=== PATIENT | female | born 1950 | race Asian ===

== ENCOUNTER 2016-11-07 09:42 | Outpatient (CLI) | payer MEDICARE | END 2016-11-07 09:43 | disposition home or self-care (01) | DX: M87.044 Idiopathic aseptic necrosis of right finger(s) (principal) ==

== ENCOUNTER 2017-03-27 09:11 | Outpatient (CLI) | payer MEDICARE, OTHER ==
[2017-03-27] MEDS ORDERED: BARIUM SULFATE 148 GM POWDER PO ONE (09:55)
[2017-03-27] MEDS ORDERED: BARIUM SULFATE 135 ML BOTTLE PO ONE (09:55)
--- NOTE | 2017-03-27 12:11 | XRAY Report ---
ESOPHAGRAM: 03/27/2017 CLINICAL INDICATION: Dysphagia. FINDINGS: Esophagram was performed in the upright and prone positions. The esophagus is normal in c aliber. Tertiary contractions are seen. No esophageal ulceration, mass lesion, or stricturing is pr esent. There is a small sliding hiatal hernia, which produced gastroesophageal reflux during the cou rse of the study. The hypopharynx appears unremarkable. A 13-mm barium pill passed freely through t he esophagus and into the stomach. IMPRESSION: SMALL SLIDING HIATAL HERNIA, PRODUCING REFLUX. PRESBYESOPHAGUS. FLUOROSCOPY TIME: 2 minutes, 21 seconds; 18 spot images obtained. JOB #: [id number] EXT JOB #:[id number]
== END 2017-03-27 09:12 | disposition home or self-care (01) ==
LOC: DI 09:11
PROVIDERS: ATTEND Surgery
DX: K44.9 Diaphragmatic hernia without obstruction or gangrene (principal); K21.9 Gastro-esophageal reflux disease without esophagitis; K22.8 Other specified diseases of esophagus
CPT/HCPCS: 74220; A9270

== ENCOUNTER 2017-05-02 11:38 | Day surgery (SDC) | payer MEDICARE ==
--- NOTE | 2017-05-02 12:18 | HISTORY & PHYSICAL EXAMINATION ---
HPI - History of Present Illness HPI Comment/Other: Barium swallow performed which demonstrates tertiary contractions but no mass lesions. No new complaints Current Meds: CLOBETASOL PROPIONATE 0.05 % OINT (CLOBETASOL PROPIONATE) Apply sparingly to affected area once daily for up to 2 weeks SPIRIVA RESPIMAT 2.5 MCG/ACT INH AERS (TIOTROPIUM BROMIDE MONOHYDRATE) Inhale two puffs daily PROAIR RESPICLICK 108 (90 BASE) MCG/ACT INH AEPB (ALBUTEROL SULFATE) Inhale two actuations every four to six hours as needed for wheezing / cough or shortness of breath ASPIRIN EC 81 MG TBEC (ASPIRIN) Take one tablet by mouth daily Allergies: * ALCOHOL (Critical) * SEASON ALLERGIES (Critical) Past Medical History: Reviewed history from 01/10/2017 and no changes required: Hearing loss (L>R) - prior ENT consult PUD ~2002 Echo 2016: moderate pulmonary and tricuspid regurg, severe pulm HTN w/ borderline RVH CT chest Jun, 2016: 9x7mm nodule right lower lobe, emphysemia and biapical fibrosis, pulmonary HTN Flovent : ineffective Spiriva 2015 Past Surgical History: Reviewed history from 10/02/2016 and no changes required: Appy Right heart cath Aug, 2016: normal left and right sided filling pressures , normal cardiac output, high-normal pulmonary artery pressure - Dr. 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 [employer] Son was stationed in [employer] (pt moved here to help son, daughter in law w / substance abuse - they have since moved to [place] and have lost contact) Other son in [place] Smoker ~1/2 ppd, started at 22 No EtOH Lives off social security and full-time pay w/ [facility] Will likely move to [place] to be near 2nd son but cannot afford to move - fears unemployment/plans to work until age 69 Risk Factors: Smoked Tobacco Use: Current every day smoker Cigarettes: Yes -- 1/2 pack(s) per day,Alcohol use: no Exercise: no Problems were reviewed with the patient during this visit. Medications were reviewed with the patient during this visit. Allergies were reviewed with the patient during this visit. Allergies: * ALCOHOL (Critical) * SEASON ALLERGIES (Critical) Physical Exam General: well developed, well nourished, in no acute distress Lungs: diminished breath sounds bilaterally Heart: regular rate and rhythm, S1, S2 without murmurs, rubs, gallops, or clicks Abdomen: bowel sounds positive; abdomen soft and non-tender without masses, organomegaly, or hernias noted Pulses: pulses normal in all 4 extremities Extremities: no clubbing, cyanosis, edema, or deformity noted with normal full range of motion of all joints Cervical Nodes: no significant adenopathy Psych: alert and cooperative; normal mood and affect; normal attention span and concentration Impression & Recommendations: Will proceed with EGD and colonoscopy with MAC PMH/PSH - Past Medical History MRSA Hx?: No Meds/Allgy - Home Medications Home Medications: Ambulatory Orders Medication Instructions Recorded Confirmed Budesonide/Formoterol Fumarate 10.2 gm IH BID 05/02/17 05/02/17 [Symbicort 160-4.5 Mcg Inhaler] Tiotropium Dexter [Spiriva] 18 mcg IH BID 05/02/17 05/02/17 - Allergies Allergies/Adverse Reactions: Allergies Allergy/AdvReac Type Severity Reaction Status Date / Time No Known Drug Allergies Allergy Verified 05/02/17 12:11 Exam - Vital Signs Vital Signs: Vital Signs x48h Temp Pulse Resp BP Pulse Ox 05/02/17 12:04 36.6 C 84 15 105/60 99
[2017-05-02] MEDS ORDERED: LACTATED RINGERS 1,000 ML IV ONE (12:20)
[2017-05-02] MEDS ORDERED: SUCCINYLCHOLINE 200 MG/10 ML VIAL IVP ONE (13:38)
[2017-05-02] MEDS ORDERED: LIDOCAINE-MPF 2% 5 ML VIAL IM ONE (13:38)
[2017-05-02] MEDS ORDERED: VASOPRESSIN 20 UNIT/ML VIAL IVP ONE (13:38)
[2017-05-02] MEDS ORDERED: ONDANSETRON 4 MG/2 ML VIAL IVP ONE (13:38)
[2017-05-02] MEDS ORDERED: DEXAMETHASONE 4 MG/ML VIAL IVP ONE (13:38)
[2017-05-02] MEDS ORDERED: PROPOFOL 200 MG/20 ML VIAL IVP ONE (13:38)
[2017-05-02 16:07] VITALS: BP 128/76
== END 2017-05-02 11:39 | disposition home or self-care (01) ==
LOC: SDS 11:38
PROVIDERS: ATTEND Surgery
PROC: 0DB78ZX Excision of Stomach, Pylorus, Via Natural or Artificial Opening Endoscopic, Diagnostic (ICD-10-PCS; principal; 2017-05-02 12:45)
PROC: 0DBH8ZX Excision of Cecum, Via Natural or Artificial Opening Endoscopic, Diagnostic (ICD-10-PCS; 2017-05-02 12:45)
DX: Z12.11 Encounter for screening for malignant neoplasm of colon (principal); R13.10 Dysphagia, unspecified; K29.50 Unspecified chronic gastritis without bleeding; D12.0 Benign neoplasm of cecum; K64.8 Other hemorrhoids; F17.210 Nicotine dependence, cigarettes, uncomplicated; K44.9 Diaphragmatic hernia without obstruction or gangrene; J84.10 Pulmonary fibrosis, unspecified; I10 Essential (primary) hypertension
CPT/HCPCS: 43239; 45380; 88305; J7120

== ENCOUNTER 2017-06-14 08:59 | Outpatient (CLI) | payer MEDICARE ==
[2017-06-14 13:09] LABS: CHOL/HDL RATIO 2.6 (<4.4); CHOLESTEROL 164 mg/dL; HDL CHOLESTEROL 63 mg/dL; LDL/HDL RATIO 1.4 (<4.4); TRIGLYCERIDES 71 mg/dL; VLDL CHOLESTEROL 14 mg/dL
== END 2017-06-14 09:00 | disposition home or self-care (01) ==
LOC: LAB.WCP 08:59
PROVIDERS: ATTEND Physician Assistant Medical
DX: R74.8 Abnormal levels of other serum enzymes (principal); Z71.9 Counseling, unspecified
CPT/HCPCS: 36415; 80061; 86803

== ENCOUNTER 2017-07-08 14:42 | Outpatient (CLI) | payer MEDICARE ==
--- NOTE | 2017-07-08 16:47 | DEXA Report ---
DEXA SCAN: 07/08/2017 CLINICAL INDICATION: Postmenopausal. TECHNIQUE: Dual energy x-ray absorptiometry (DXA) was performed on a lmbang system. Regions measured are the AP spine, femoral neck, and, if needed, forearm. COMPARISON: None. In accordance with the International Society for Clinical Densitometry (ISCD) guidelines, data from previous exams may be reanalyzed using current recommendations and techniques. This is done to allow a more accurate basis for comparison with the current study. FINDINGS: The data for the lumbar spine is as follows: REGION BMD (g/cm/cm) T-SCORE Z-SCORE L1 0.714 -3.5 -0.9 L2 0.753 -3.7 -1.2 L3 0.786 -3.5 -0.9 L4 0.840 -3.0 -0.4 TOTAL 0.778 -3.3 -0.8 NOTE: All evaluable vertebrae are used for classification. The data for the hip is as follows: REGION BMD (g/cm/cm) T-SCORE Z-SCORE Neck 0.577 -3.3 -1.1 TOTAL 0.647 -2.9 -0.8 NOTE: The femoral neck or total proximal femur, whichever is lowest, is used for classification. IMPRESSION: THE WHO CLASSIFICATION BASED ON THE INTERNATIONAL REFERENCE STANDARD IS OSTEOPOROSIS. THE FRACTURE RISK IS HIGH. RECOMMENDATION: Patients with diagnosis of osteoporosis or osteopenia should have regular bone mineral density assessment. For those eligible for Medicare, routine testing is allowed once every 2 years. Testing frequency can be increased for patients who have rapidly progressing disease or for those who are receiving medical therapy to restore bone mass. COMMENT: World Health Organization (WHO) definitions for osteoporosis and osteopenia: NORMAL BMD: T-score at -1.0 or higher, fracture risk is low. OSTEOPENIA BMD: T-score between -1.0 and -2.5, fracture risk is increased. OSTEOPOROSIS BMD: T-score at -2.5 or lower, fracture risk high. National Osteoporosis Foundation recommends: 1. Obtain adequate dietary calcium (at least 1200 mg per day) and vitamin D (400 -800 international units per day). 2. Participate, as appropriate, in regular weightbearing and muscle- strengthening exercise. 3. Avoid tobacco use and reduce alcohol and caffeine intake. 4. For more detailed information see the website at www.NOF.org. MTDD
== END 2017-07-08 14:43 | disposition home or self-care (01) ==
LOC: DI 14:42
PROVIDERS: ATTEND Physician Assistant Medical
DX: M81.0 Age-related osteoporosis without current pathological fracture (principal)
CPT/HCPCS: 77080

== ENCOUNTER 2017-07-08 14:44 | Outpatient (CLI) | payer MEDICARE ==
--- NOTE | 2017-07-09 19:23 | Mammography Report ---
DIGITAL SCREENING MAMMOGRAM: 07/08/2017 CLINICAL INDICATION: A 67-year-old for new baseline. TECHNIQUE: Routine CC and MLO projections as well as bilateral laterally exaggerated craniocaudal vi ews were obtained of the breasts. The breasts demonstrate heterogeneously dense fibroglandular parenchyma bilaterally. Coarse and punc sanchez, typically benign calcifications are present. No suspicious masses, clustered microcalcificatio ns, or regions of architectural distortion are identified. IMPRESSION: BENIGN FINDINGS. RECOMMENDATION: ROUTINE ANNUAL SCREENING UNLESS OTHERWISE CLINICALLY INDICATED. BIRADS CATEGORY: 2, BENIGN FINDINGS. STANDARD QUALIFYING STATEMENTS 1. This examination was reviewed with the aid of Computed-Aided Detection (CAD). 2. A negative or benign imaging report should not delay biopsy if clinically suspicious findings are present. Consider surgical consultation if warranted. More than 5% of cancers are not identified b y imaging. 3. Dense breasts may obscure an underlying neoplasm. JOB #: [id number] EXT JOB #:[id number]
== END 2017-07-08 14:45 | disposition home or self-care (01) ==
LOC: DI 14:44
PROVIDERS: ATTEND Physician Assistant Medical
DX: Z12.31 Encounter for screening mammogram for malignant neoplasm of breast (principal)
CPT/HCPCS: 77067

== ENCOUNTER 2018-07-25 08:27 | Outpatient (CLI) | payer MEDICARE ==
[2018-07-25 12:29] LABS: EOSINOPHILS # (AUTO) 0.1 10^3/uL (0.0-0.7); EOSINOPHILS % (AUTO) 1.2 %; HGB - HEMOGLOBIN 14.6 g/dL (12.0-16.0); LYMPHOCYTES # (AUTO) 1.6 10^3/uL (1.5-3.5); LYMPHOCYTES % (AUTO) 34.4 %; MEAN CORPUSCULAR HEMOGLOBIN 33.9 pg (27.0-31.0); MEAN CORPUSCULAR HGB CONC 34.5 g/dL (32.0-36.0); MEAN CORPUSCULAR VOLUME 98.3 fL (81.0-99.0); MEAN PLATELET VOLUME 7.8 fL (7.9-10.8); MONOCYTES # (AUTO) 0.4 10^3/uL (0.0-1.0); MONOCYTES % (AUTO) 8.1 %; NEUTROPHILS # (AUTO) 2.5 10^3/uL (1.5-6.6); NEUTROPHILS % (AUTO) 55.3 %; PLT - PLATELET COUNT 126 10^3/uL (130-450); RED BLOOD COUNT 4.31 10^6/uL (4.20-5.40); RED CELL DISTRIBUTION WIDTH 15.5 % (12.0-15.0); WHITE BLOOD COUNT 4.5 x10^3/uL (4.8-10.8)
[2018-07-25 13:10] LABS: ALBUMIN 4.1 g/dL (3.2-5.5); ALBUMIN/GLOBULIN RATIO 1.4 (1.0-2.2); ALKALINE PHOSPHATASE 59 IU/L (42-121); ALT ALANINE AMINOTRANSFERASE 25 IU/L (10-60); AST ASPARTATE AMINOTRANSFERASE 32 IU/L (10-42); BILIRUBIN,TOTAL 1.2 mg/dL (0.2-1.0); BUN - BLOOD UREA NITROGEN 20 mg/dL (6-20); CALCIUM 7.8 mg/dL (8.5-10.3); CARBON DIOXIDE - CO2 25 mmol/L (21-32); CHLORIDE 99 mmol/L (101-111); CHOL/HDL RATIO 2.5 (<4.4); CHOLESTEROL 120 mg/dL; CREATININE 0.5 mg/dL (0.4-1.0); GFR - MDRD 122 (>89); GLUCOSE 91 mg/dL (70-100); HDL CHOLESTEROL 48 mg/dL; LDL CHOLESTEROL,CALCULATED 57 mg/dL; LDL/HDL RATIO 1.2 (<4.4); SODIUM 136 mmol/L (135-145); VLDL CHOLESTEROL 15 mg/dL
== END 2018-07-25 08:28 | disposition home or self-care (01) ==
LOC: LAB.WCP 08:27
PROVIDERS: ATTEND Family Medicine
DX: R74.8 Abnormal levels of other serum enzymes (principal); Z13.220 Encounter for screening for lipoid disorders; F41.9 Anxiety disorder, unspecified; R63.6 Underweight; R03.0 Elevated blood-pressure reading, without diagnosis of hypertension; F17.200 Nicotine dependence, unspecified, uncomplicated
CPT/HCPCS: 36415; 80053; 80061; 83721; 84443; 85025

== ENCOUNTER 2018-08-01 11:12 | Outpatient (CLI) | payer MEDICARE ==
[2018-08-01 19:25] LABS: BASOPHILS % (AUTO) 0.9 %; EOSINOPHILS # (AUTO) 0.1 10^3/uL (0.0-0.7); EOSINOPHILS % (AUTO) 1.5 %; HGB - HEMOGLOBIN 15.2 g/dL (12.0-16.0); LYMPHOCYTES # (AUTO) 1.4 10^3/uL (1.5-3.5); LYMPHOCYTES % (AUTO) 24.6 %; MEAN CORPUSCULAR HEMOGLOBIN 33.1 pg (27.0-31.0); MEAN CORPUSCULAR HGB CONC 32.9 g/dL (32.0-36.0); MEAN CORPUSCULAR VOLUME 100.7 fL (81.0-99.0); MEAN PLATELET VOLUME 8.4 fL (7.9-10.8); MONOCYTES # (AUTO) 0.4 10^3/uL (0.0-1.0); MONOCYTES % (AUTO) 7.8 %; NEUTROPHILS # (AUTO) 3.7 10^3/uL (1.5-6.6); NEUTROPHILS % (AUTO) 65.2 %; PLT - PLATELET COUNT 135 10^3/uL (130-450); RED BLOOD COUNT 4.59 10^6/uL (4.20-5.40); RED CELL DISTRIBUTION WIDTH 16.4 % (12.0-15.0); WHITE BLOOD COUNT 5.6 x10^3/uL (4.8-10.8)
[2018-08-01 19:34] LABS: ALBUMIN 4.3 g/dL (3.2-5.5); ALBUMIN/GLOBULIN RATIO 1.5 (1.0-2.2); BILIRUBIN,TOTAL 0.9 mg/dL (0.2-1.0); CALCIUM 8.7 mg/dL (8.5-10.3); CREATININE 0.5 mg/dL (0.4-1.0); TOTAL PROTEIN 7.2 g/dL (6.7-8.2)
== END 2018-08-01 11:13 | disposition home or self-care (01) ==
LOC: LAB.WCP 11:12
PROVIDERS: ATTEND Family Medicine
DX: R10.13 Epigastric pain (principal)
CPT/HCPCS: 36415; 80053; 82150; 83690; 85025

== ENCOUNTER 2018-08-05 17:48 | Outpatient (CLI) | payer MEDICARE ==
--- NOTE | 2018-08-05 20:04 | Ultrasound Report ---
Reason: ABDOMINAL PAIN,EPIGASTRIC Procedure Date: 08/05/2018 Accession Number: [id number] / [id number] Procedure: US - Abdomen Limited CPT Code: FULL RESULT: EXAM: ABDOMEN ULTRASOUND LIMITED, RUQ EXAM DATE: 08/05/2018 07:19 PM. CLINICAL HISTORY: ABDOMINAL Pain, epigastric. COMPARISON: None available. TECHNIQUE: Real-time scanning was performed with static images obtained. FINDINGS: Liver: Normal in size and echotexture. 12.1 cm. Main portal vein flow: Hepatopetal. Gallbladder: The gallbladder is partially contracted. No stones visualized. No definite pericholecystic fluid. Biliary System: CBD measures 3 mm. No intrahepatic or extrahepatic ductal dilatation. Other: Unremarkable appearance of the right kidney. The visualized pancreas is unremarkable. IMPRESSION: No evidence of cholelithiasis or acute cholecystitis. The gallbladder is partially contracted. RADIA
== END 2018-08-05 17:49 | disposition home or self-care (01) ==
LOC: DI 17:48
PROVIDERS: ATTEND Family Medicine
DX: R10.13 Epigastric pain (principal)
CPT/HCPCS: 76705

== ENCOUNTER 2018-08-12 22:41 | Outpatient (CLI) | payer MEDICARE ==
[2018-08-12 19:10] LABS: THYROID STIMULATING HORMONE < 0.08 uIU/mL (0.34-5.60)
[2018-08-12 19:14] LABS: FREE T4 (FREE THYROXINE) 1.25 ng/dL (0.58-1.64)
== END 2018-08-12 22:42 | disposition home or self-care (01) ==
LOC: LAB.WCP 22:41
PROVIDERS: ATTEND Family Medicine
DX: R94.6 Abnormal results of thyroid function studies (principal)
CPT/HCPCS: 36415; 84439; 84443; 84481

== ENCOUNTER 2018-08-16 06:40 | Outpatient (CLI) | payer MEDICARE ==
[2018-08-16] MEDS ORDERED: IOPAMIDOL-300 50 ML VIAL ONE (06:52)
[2018-08-16] MEDS ORDERED: IOPAMIDOL-300 100 ML VIAL ONE (06:53)
[2018-08-16] MEDS ORDERED: IOPAMIDOL-300 50 ML VIAL PO ONE (08:40)
[2018-08-16] MEDS ORDERED: IOPAMIDOL-300 100 ML VIAL IVP ONE (08:40)
--- NOTE | 2018-08-17 09:13 | CT Report ---
Reason: ABDOMINAL PAIN,EPIGASTRIC, LOW BODY WEIGHT Procedure Date: 08/16/2018 Accession Number: [id number] / [id number] Procedure: CT - Abdomen/Pelvis W/WO CPT Code: FULL RESULT: EXAM: CT ABDOMEN WITHOUT AND WITH, CT PELVIS WITH CONTRAST EXAM DATE: 08/16/2018 08:15 AM. CLINICAL HISTORY: ABDOMINAL PAIN,EPIGASTRIC, LOW BODY WEIGHT. COMPARISONS: None. TECHNIQUE: Routine helical CT imaging was performed through the abdomen before administration of IV contrast and through the abdomen and pelvis with IV contrast: ISOVUE 300 80mL. Enteric contrast: Yes Reconstructions: Coronal and sagittal. In accordance with CT protocol optimization, one or more of the following dose reduction techniques were utilized for this exam: automated exposure control, adjustment of mA and/or KV based on patient size, or use of iterative reconstructive technique. FINDINGS: Lung Bases: Severe centrilobular emphysema at the lung bases. Cardiomegaly with asymmetric right heart enlargement. Liver: Normal. No masses. Gallbladder/Bile Ducts: Extrahepatic biliary ductal dilatation with the common bile duct measuring 10 mm, series 10, coronal image 13. No obstructing etiology seen. Spleen: Normal. Pancreas: Normal. Adrenal Glands: Normal. Kidneys: Normal. No masses or hydronephrosis. Peritoneal Cavity/Bowel: Normal. No free fluid, free air or adenopathy. No masses or acute inflammatory process. Pelvic Organs: Normal. The bladder and visualized pelvic organs are within normal limits. Vasculature: Enlarged left ovarian vein with prominent bilateral parametrial veins. Bones: Decreased bone mineralization. Other: None. IMPRESSION: 1. No acute findings in the abdomen or pelvis 2. Severe emphysema 3. Cardiomegaly with right heart enlargement 4. Mild extrahepatic biliary ductal dilatation without etiology. Consider correlation with liver function tests and if obstructive pattern, MRI pancreas/MRCP 5. Enlarged left ovarian vein and bilateral parametrial veins is often normal however has been described with pelvic congestion syndrome in a younger demographic 6. Decreased bone mineralization RADIA
== END 2018-08-16 06:41 | disposition home or self-care (01) ==
LOC: DI 06:40
PROVIDERS: ATTEND Family Medicine
DX: R10.13 Epigastric pain (principal); R63.6 Underweight; J43.9 Emphysema, unspecified; I51.7 Cardiomegaly; R93.2 Abnormal findings on diagnostic imaging of liver and biliary tract; R93.89 Abnormal findings on diagnostic imaging of other specified body structures
CPT/HCPCS: 74178; Q9967

== ENCOUNTER 2018-08-19 11:12 | Outpatient (CLI) | payer MEDICARE ==
[2018-08-19] MEDS ORDERED: SINCALIDE 5 MCG VIAL ONE (12:55)
[2018-08-19] MEDS ORDERED: SINCALIDE 0.9 MCG in SODIUM CHLORIDE 0.9% 50 ML IV ONE (14:28)
--- NOTE | 2018-08-19 14:59 | Nuclear Medicine Report ---
Reason: ABDOMINAL PAIN, EPIGASTRIC, LOW BODY WEIGHT Procedure Date: 08/19/2018 Accession Number: [id number] / [id number] Procedure: NM - Hepatobiliary HIDA w/ Rx CPT Code: FULL RESULT: EXAM: HEPATOBILIARY SCAN WITH CCK/KINEVAC ADMINISTRATION EXAM DATE: 08/19/2018 02:31 PM. CLINICAL HISTORY: ABDOMINAL PAIN, EPIGASTRIC, LOW BODY WEIGHT. COMPARISON: None. TECHNIQUE: Following the intravenous administration of 5.1 mCi of Tc99m Mebrofenin, a hepatobiliary scan was done centered on the liver and gallbladder in multiple sequential images and projections. Following the intravenous administration of 0.7 mcg of CCK/ Kinevac over the course of approximately 60 minutes, dynamic imaging was done and the gallbladder ejection fraction was calculated. FINDINGS: Normal extraction of tracer from the blood pool indicating normal hepatocellular function. The liver size and shape is grossly within normal limits. Appearance of tracer in the biliary tree as early as 0-5 minutes, within normal limits. Gallbladder activity is not clearly visualized although may be obscured by conspicuous activity within the common bile duct and/or duodenum. Appearance of tracer in the small bowel as early as 5-10 minutes, within normal limits. With CCK administration, the calculated ejection fraction is 87%, however it is unclear whether the selected CHUYITA represents the gallbladder. No evidence of enteric reflux into the stomach. No significant collection of tracer remaining in the common bile duct by the end of the study. IMPRESSION: 1. Gallbladder activity is not clearly visualized although may be obscured by activity within the common bile duct and/or duodenum. 2. Patent common bile duct. RADIA
== END 2018-08-19 11:13 | disposition home or self-care (01) ==
LOC: DI 11:12
PROVIDERS: ATTEND Family Medicine
DX: R10.13 Epigastric pain (principal)
CPT/HCPCS: 78227; J7040

== ENCOUNTER 2018-09-27 16:47 | Outpatient (CLI) | payer MEDICARE ==
--- NOTE | 2018-09-28 01:12 | Ultrasound Report ---
Reason: HYPERTHYROIDISM Procedure Date: 09/27/2018 Accession Number: [id number] / [id number] Procedure: US - Head or Neck Soft Tissue CPT Code: FULL RESULT: EXAM: THYROID ULTRASOUND EXAM DATE: 09/27/2018 05:11 PM. CLINICAL HISTORY: HYPERTHYROIDISM. COMPARISON: None. TECHNIQUE: Real time sonographic imaging of the thyroid was performed by the boilermaker assembly and erection. Multiple sales representative graphic art static images were saved for review. FINDINGS: THYROID GLAND: Right Lobe: 4.4 x 1.3 x 1.4 cm, volume 4.2 cc. Mildly hypervascular parenchyma. Heterogeneous parenchyma. No mass or nodule. Right Lobe Nodules: None. Left Lobe: 4 x 1.2 x 1.3 cm, volume 3.2 cc. Mildly hypervascular parenchyma. Heterogeneous parenchyma. No mass or nodule. Left Lobe Nodules: None. Isthmus: 0.2 cm AP. Isthmic Nodules: None. LYMPH NODES: No adenopathy demonstrated in the central or lateral compartment. OTHER: None. IMPRESSION: 1. Heterogeneous, mildly hypervascular thyroid gland parenchyma. 2. No thyroid nodule or mass. 3. No adenopathy. Management recommendations are based on 2015 [place] [employer] Management Guidelines for Adult Patients with Thyroid Nodules and Differentiated Thyroid Cancer. RADIA
== END 2018-09-27 16:48 | disposition home or self-care (01) ==
LOC: DI 16:47
PROVIDERS: ATTEND Family Medicine
DX: E05.90 Thyrotoxicosis, unspecified without thyrotoxic crisis or storm (principal)
CPT/HCPCS: 76536

== ENCOUNTER 2018-12-25 09:49 | Outpatient (CLI) | payer MEDICARE ==
--- NOTE | 2018-12-25 11:40 | XRAY Report ---
Reason: EDEMA,PULMONARY FIBROSIS,CARDIOMEGALY,SMOKER Procedure Date: 12/25/2018 Accession Number: [id number] / [id number] Procedure: WCP - Chest 2 View X-Ray CPT Code: 68042 FULL RESULT: EXAM: CHEST RADIOGRAPHY EXAM DATE: 12/25/2018 09:49 AM. CLINICAL HISTORY: Edema, pulmonary fibrosis, cardiomegaly,smoker. COMPARISON: CHEST 2 VIEW PA/LAT 06/12/2016 11:24 AM. TECHNIQUE: 2 views. FINDINGS: Lungs/Pleura: Pulmonary markings are coarse in keeping with interstitial lung disease. Diaphragms are flattened and lung volumes are high, suggestive of component of obstructive lung disease. A 7 mm well-rounded hyperdense nodule in the right infrahilar region and a 9 mm well-circumscribed hypodense nodule in the left suprahilar region identified. The right nodule finding possibly represents a vessel on end and is questionably present on the previous study though this is not definitely established. The right suprahilar finding appears new. No airspace consolidation is detected. There is no pleural effusion or pneumothorax. Mediastinum: Redemonstration of cardiomegaly with calcifications of the aortic arch. Other: None. IMPRESSION: Apparent interval development of perihilar nodules, recommend chest CT. RADIA
== END 2018-12-25 09:50 | disposition home or self-care (01) ==
LOC: DI.WCP 09:49
PROVIDERS: ATTEND Nurse Practitioner
DX: R60.9 Edema, unspecified (principal); J84.10 Pulmonary fibrosis, unspecified; I51.7 Cardiomegaly; F17.200 Nicotine dependence, unspecified, uncomplicated; R91.8 Other nonspecific abnormal finding of lung field; I49.9 Cardiac arrhythmia, unspecified; E05.90 Thyrotoxicosis, unspecified without thyrotoxic crisis or storm
CPT/HCPCS: 36415; 71046; 80053; 83880; 84443; 85025; 86021; 86038; 86200; 86430

== ENCOUNTER 2018-12-25 10:44 | Outpatient (CLI) | payer MEDICARE ==
[2018-12-25 18:54] LABS: BASOPHILS # (AUTO) 0.1 10^3/uL (0.0-0.1); BASOPHILS % (AUTO) 1.2 %; EOSINOPHILS # (AUTO) 0.1 10^3/uL (0.0-0.7); HGB - HEMOGLOBIN 14.3 g/dL (12.0-16.0); LYMPHOCYTES # (AUTO) 1.6 10^3/uL (1.5-3.5); LYMPHOCYTES % (AUTO) 30.9 %; MEAN CORPUSCULAR HEMOGLOBIN 33.8 pg (27.0-31.0); MEAN CORPUSCULAR HGB CONC 32.2 g/dL (32.0-36.0); MEAN CORPUSCULAR VOLUME 104.9 fL (81.0-99.0); MEAN PLATELET VOLUME 9.3 fL (7.9-10.8); MONOCYTES # (AUTO) 0.3 10^3/uL (0.0-1.0); MONOCYTES % (AUTO) 5.8 %; NEUTROPHILS % (AUTO) 60.1 %; PLT - PLATELET COUNT 132 10^3/uL (130-450); RED BLOOD COUNT 4.23 10^6/uL (4.20-5.40); RED CELL DISTRIBUTION WIDTH 17.1 % (12.0-15.0)
[2018-12-25 19:24] LABS: ALBUMIN/GLOBULIN RATIO 1.3 (1.0-2.2); BILIRUBIN,TOTAL 0.9 mg/dL (0.2-1.0); CALCIUM 8.4 mg/dL (8.5-10.3); CREATININE 0.6 mg/dL (0.4-1.0); TOTAL PROTEIN 7.1 g/dL (6.7-8.2)
== END 2018-12-25 10:45 | disposition home or self-care (01) ==
LOC: LAB.WCP 10:44
PROVIDERS: ATTEND Internal Medicine Critical Care Medicine
DX: I49.9 Cardiac arrhythmia, unspecified (principal); R60.9 Edema, unspecified; E05.90 Thyrotoxicosis, unspecified without thyrotoxic crisis or storm
CPT/HCPCS: 36415; 80053; 83880; 84443; 85025; 86021; 86038; 86200; 86430

== ENCOUNTER 2018-12-29 16:11 | Inpatient (IN) | payer MEDICARE ==
[2018-12-29 17:33] LABS: BASOPHILS # (AUTO) 0.1 10^3/uL (0.0-0.1); BASOPHILS % (AUTO) 1.5 %; EOSINOPHILS # (AUTO) 0.1 10^3/uL (0.0-0.7); EOSINOPHILS % (AUTO) 1.7 %; HGB - HEMOGLOBIN 14.1 g/dL (12.0-16.0); LYMPHOCYTES # (AUTO) 1.7 10^3/uL (1.5-3.5); MEAN CORPUSCULAR HEMOGLOBIN 33.9 pg (27.0-31.0); MEAN CORPUSCULAR HGB CONC 32.9 g/dL (32.0-36.0); MEAN CORPUSCULAR VOLUME 102.9 fL (81.0-99.0); MEAN PLATELET VOLUME 7.7 fL (7.9-10.8); MONOCYTES # (AUTO) 0.3 10^3/uL (0.0-1.0); MONOCYTES % (AUTO) 7.3 %; NEUTROPHILS # (AUTO) 2.3 10^3/uL (1.5-6.6); NEUTROPHILS % (AUTO) 51.5 %; PLT - PLATELET COUNT 124 10^3/uL (130-450); RED BLOOD COUNT 4.16 10^6/uL (4.20-5.40); RED CELL DISTRIBUTION WIDTH 16.4 % (12.0-15.0); WHITE BLOOD COUNT 4.5 x10^3/uL (4.8-10.8)
[2018-12-29 17:41] LABS: CALCIUM 8.8 mg/dL (8.5-10.3)
[2018-12-29 17:45] LABS: INR 1.2 (0.8-1.2); PT - PROTHROMBIN TIME 13.7 secs (9.9-12.6)
[2018-12-29] MEDS: METOPROLOL TARTRATE 25 MG TABLET PO SCH ×2 (18:31→21:07)
[2018-12-29] MEDS: FUROSEMIDE 20 MG/2 ML VIAL IVP SCH (18:34)
[2018-12-29] MEDS: NICOTINE 14 MG PATCH TOP SCH (18:37)
[2018-12-29] MEDS ORDERED: POTASSIUM CHLORIDE 20 MEQ TABLET PO ONE (18:38)
--- NOTE | 2018-12-29 18:48 | ADVANCE CARE PLANNING NOTE ---
Advance Care Planning - Date/Time Date: 12/29/18 Time: 18:00 - Purpose of encounter Text: To establish Code wishes - Parties in attendance Parties in attendance: I spoke to patient in her room - Decisional capacity Decisional capacity of: She has full capacity - Subjective/Patient's story Subjective/Patient's story: She has been SOB for 2 years, has had Research Home Economist, Orthodontist Assistant eval and no better. Her fingers are cold and blue and oainful, and she saw a Dermatologust belen prescribed antibiotics, no help. She was diagnosed with Hyperthyroidism by Dr Wright and saw an Endocrinilogist who set her up for what sounds like RadioIodine ablation, then she got a call that she did not have hyperthyroidism and no treatment was given. She has had new leg edema for 2 weeks and is no better on Lasix which was changed to Spironolactone. - Objective/Medical story Objective/Medical Story: Pulmonary Fivbrosis and Pulmonary HTN by R heart cath done in 2016. Home oxygen and spiriva was sarted but only caused dryness and no improvement in SOB. She has had eddema and cough, orthopnea for 2 weeks, no better on Lasix then on Spironolactone. No other medications started for tachycardia or Pulmonary HTN. She moved from [facility] to [facility] to be with her son, who moved off [place], so she is here alone. - Goals of Care Goals of care determinations: DNR/DNI. Full treatment otherwise, including transfer to other hospital. - Plan Plan: POLST form will be signed, orders as above. - Time Spent on Advance Care Planning Time spent on advance care plannin min
--- NOTE | 2018-12-29 19:17 | XRAY Report ---
Reason: SOB Procedure Date: 12/29/2018 Accession Number: [id number] / [id number] Procedure: XR - Chest 1 View X-Ray CPT Code: 98077 FULL RESULT: EXAM: CHEST RADIOGRAPHY EXAM DATE: 12/29/2018 05:35 PM. CLINICAL HISTORY: SOB. COMPARISON: CHEST 2 VIEW 12/25/2018 9:49 AM. TECHNIQUE: 1 view. FINDINGS: Lungs/Pleura: Coarse bilateral lower lung opacities are again seen and have progressed right greater than left. Vasculature is increased in prominence. Small right pleural effusion again seen. Nodular density previously described along the left and right hilum unchanged. Oval density projected over the left midlung is seen measuring 20 mm. Mediastinum: Cardiomegaly. Aortic atherosclerosis. No pneumothorax. Other: None. IMPRESSION: 1. Cardiomegaly. Mild edema. 2. Progression of coarse bilateral lower lung opacities. 3. Small right pleural effusion. 4. 20 mm oval density projected over the left midlung, indeterminate. Follow-up 2 view chest x-ray recommended once patient's clinical symptoms have improved. RADIA
[2018-12-29 19:18] LABS: BILIRUBIN,URINE NEGATIVE (NEGATIVE); GLUCOSE, URINE (UA) NEGATIVE (NEGATIVE); KETONES,URINE (UA) NEGATIVE (NEGATIVE); LEUKOCYTE ESTERASE, URINE NEGATIVE (NEGATIVE); NITRITE,URINE NEGATIVE (NEGATIVE); OCCULT BLOOD,URINE TRACE-INTA (NEGATIVE); PROTEIN,URINE 100 mg/dL (NEGATIVE); UROBILINOGEN,URINE 0.2 (NORMAL) E.U./dL (NORMAL)
[2018-12-29 19:23] LABS: ALBUMIN 3.6 g/dL (3.2-5.5); ALBUMIN/GLOBULIN RATIO 1.3 (1.0-2.2); CREATININE 0.7 mg/dL (0.4-1.0); TOTAL PROTEIN 6.3 g/dL (6.7-8.2)
[2018-12-29 19:44] LABS: CLARITY,URINE CLEAR (CLEAR)
--- NOTE | 2018-12-29 20:17 | HISTORY & PHYSICAL EXAMINATION ---
DATE OF SERVICE: 12/29/2018 Physician: Rosario Nina MD HISTORY OF PRESENT ILLNESS: This is a 68-year-old female of descent who has a history of pulmonary fibrosis, pulmonary hypertension, possible Raynaud disease of her fingers, hyperthyroidism recently diagnosed, poor appetite and weight loss, who presents with worsening shortness of breath and new leg edema. The patient's history started two years ago when she developed shortness of breath and was sent for workup to a Athletics Director. Review of old records shows that she underwent a right heart catheterization and was found to have pulmonary fibrosis and pulmonary hypertension. She also went to a Preschool Director and did have pulmonary function testing done but does not know the results. She was started on home oxygen and Spiriva inhaler. She states that none of these improved her shortness of breath and only made her get oral dryness as well as nasal dryness to the point of nosebleeds. She had to see an ENT for cauterization of the nose bleeds. She also developed new discoloration of all of her fingers as well as cold and painful sloughing off of the tips of her fingers and pain in one specific fingertip. She was sent to a Movie Shot Camera Operator. She was first given creams for this, and then was told there was an infection and she was on oral antibiotics for a while. She states that there has been no improvement in any of the coolness or pain in her fingers and occasionally she wears Band-Aids on the tips because she uses her fingers at work a lot. She recently underwent blood testing that showed her to be hyperthyroid with a very high T3 level, and she was sent to an Dentistry Professor. She reports that she was scheduled to undergo what sounds like radionuclide ablation of the thyroid and this was scheduled, but then she later got a phone call and she was told that she did not have hyperthyroidism and the treatment was canceled. She has never been on medications for tachycardia and denies any other feeling such as anxiety or diarrhea. She does get constant itching of her scalp, though. She did not tell me if there has been hair loss or not. With those blood tests a week ago, she was found to have a very high BNP, and she was started on Lasix, which she took for 5 days. This did not help with any of her shortness of breath and minimal help in new leg edema that was developing over the past few weeks. She was switched then to take spironolactone 25 mg daily and the Lasix was stopped, and this led to more weight gain instead of fluid loss and weight loss. She went to her doctor today in follow-up and was found to be hypertensive with blood pressure 168/110, tachycardic with a resting heart rate of 110, and Dr. Wright called me for a direct admission for CHF, COPD exacerbation, underlying pulmonary fibrosis, and hyperthyroidism management. MEDICATIONS AT HOME 1. Vitamin daily. 2. Calcium orally. 3. Spironolactone 25 mg daily. 4. It is unclear if she uses her home oxygen or not. There are no inhalers used currently. ALLERGIES: NONE. SOCIAL HISTORY: The patient is a smoker of half pack a day, and she is decreasing. She drinks no alcohol, uses no illicit drugs. 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 The patient moved here from [facility] to live with her son, who was on [facility] but subsequently he has moved off the [place], and she is here alone. She is a of 40 years. FAMILY HISTORY: No inherited diseases. REVIEW OF SYSTEMS: Comprehensive review of systems was performed and the pertinent positives are all listed above; the rest are negative. PHYSICAL EXAMINATION GENERAL: Thin, cachectic, female who is in [id number] respiratory distress. She has a wet nonproductive cough, no audible wheezing, is able to speak in normal sentences without pursed lip breathing, but she does have a tripod position of her upper body. VITAL SIGNS: Blood pressure 140/110, heart rate 102 in sinus tachycardia, afebrile, room air saturation unknown, and on 3 liters, she is 98% saturated. HEENT: Moist oral mucosa. She is wearing nasal cannula oxygen. NECK: Positive JVD to the angle of the jaw, sitting in a vertical position. CHEST: Diffusely poor air movement, and prolonged expiratory phase. No wheezes, rales or rhonchi. HEART: Heart sounds are very distant. She has a systolic murmur at the lower left sternal border as well as a diastolic murmur; both are 2-3/6. There is a positive RV heave. There is no S3 gallop. ABDOMEN: Soft with no tenderness. Normal bowel sounds. EXTREMITIES: Show 2+ edema to the knees. She has clubbing of her fingernails but not of her nails of her feet. She has bluish-purple discoloration of all fingers starting at the knuckles down to the tips. Her fingertips are all very flat, and two of her fingers contain Band-Aids because they are "sloughing off." NEUROLOGIC: Grossly intact. LABORATORY DATA: White count 4.5, hemoglobin 14.1, MCV 102.9, platelet count 124. INR normal at 1.2, sodium 145, potassium 3.3; two weeks ago, the potassium was 2.8. Her BUN and creatinine are still pending. Her liver tests are pending. Her troponin is not detectable. Her BNP is 1720, and one week ago it was approximately 1000. Chest x-ray: still pending. EKG shows sinus tachycardia, low voltage in the limb leads, right axis deviation, flat T-waves in the inferior leads and V5 through V6. She has borderline prolonged QT interval. (The EKG has the impression of cor pulmonale because of the right axis deviation and low voltage.) IMPRESSION/DIAGNOSES 1. Congestive heart failure by virtue of very high BNP. 2. Chronic obstructive pulmonary disease with exacerbation. 3. Tachycardia. 4. Hypertension. 5. Hyperthyroidism. 6. Pulmonary fibrosis. 7. Tobacco abuse. 8. Macrocytosis without anemia (she probably normally has a high hemoglobin; therefore for her, this could be an anemia). 9. Raynaud's phenomenon. 10. Heart murmur. 11. Abnormal EKG consistent with cor pulmonale. PLAN 1. Admit the patient to Med/Surg status on telemetry bed. 2. Start treatment of the tachycardia and hyperthyroidism with beta blockers. Will select a beta-1 selective beta lorenza. Another alternative for rate control would be Cardizem, which would also help with peripheral vasodilation for her Raynaud's phenomenon. Once the heart rate is controlled, other choices for vasodilation can be tried, such as amlodipine or Minipress. 3. Recheck her TFTs, but no direct thyroid treatment would be started here until rate is controlled. 4. Continue with her diuretics and will use both Lasix and Spironolactone. 5. Follow her potassium, magnesium, BUN and creatinine. 6. Follow I's and O's and daily weights. 7. Continue with supplemental oxygen and begin nebulizers using Xopenex, not Albuterol because of the tachycardia. 8. Start IV steroids empirically. 9. Obtain a sputum culture if she makes it. 10. Start a nicotine patch, low or at most medium dose because of the tachycardia. 11. Start a low-salt diet. CODE STATUS: DNR. DEEP VENOUS THROMBOSIS PROPHYLAXIS: Lovenox. ATTESTATION: The patient is expected to be discharged to transferred to another facility within 96 hours: Yes. cc: Mari Wright MD TD: 12/29/2018 19:21 MTDD
[2018-12-29 20:24] LABS: RBC,URINE 0-5 /HPF (0-5)
[2018-12-29 20:25] LABS: BACTERIA,URINE Few /HPF (None Seen); MUCUS,URINE Moderate Strands; SQUAMOUS EPITHELIAL CELL,UR MOD Squamous (<= Few)
[2018-12-29] MEDS: FAMOTIDINE 20 MG TABLET PO SCH (21:07)
[2018-12-30] MEDS: MORPHINE 2 MG/ML CARPUJECT IVP PRN (00:04)
[2018-12-30] MEDS: SODIUM CHLORIDE FLUSH 0.9% 10 ML SYRINGE IVP SCH ×3 (00:05→18:21)
[2018-12-30] MEDS: PROCHLORPERAZINE 10 MG/2 ML VIAL IVP PRN ×2 (00:51→13:28)
[2018-12-30] MEDS: SODIUM CHLORIDE FLUSH 0.9% 10 ML SYRINGE IVP PRN ×2 (00:54→06:56)
[2018-12-30 06:15] LABS: BASOPHILS # (AUTO) 0.1 10^3/uL (0.0-0.1); BASOPHILS % (AUTO) 1.2 %; EOSINOPHILS # (AUTO) 0.1 10^3/uL (0.0-0.7); EOSINOPHILS % (AUTO) 1.2 %; HGB - HEMOGLOBIN 14.7 g/dL (12.0-16.0); LYMPHOCYTES # (AUTO) 1.5 10^3/uL (1.5-3.5); LYMPHOCYTES % (AUTO) 25.9 %; MEAN CORPUSCULAR HEMOGLOBIN 33.7 pg (27.0-31.0); MEAN CORPUSCULAR HGB CONC 31.4 g/dL (32.0-36.0); MEAN CORPUSCULAR VOLUME 107.4 fL (81.0-99.0); MEAN PLATELET VOLUME 8.3 fL (7.9-10.8); MONOCYTES # (AUTO) 0.4 10^3/uL (0.0-1.0); MONOCYTES % (AUTO) 6.4 %; NEUTROPHILS # (AUTO) 3.8 10^3/uL (1.5-6.6); NEUTROPHILS % (AUTO) 65.3 %; PLT - PLATELET COUNT 113 10^3/uL (130-450); RED BLOOD COUNT 4.35 10^6/uL (4.20-5.40); RED CELL DISTRIBUTION WIDTH 17.2 % (12.0-15.0); WHITE BLOOD COUNT 5.8 x10^3/uL (4.8-10.8)
[2018-12-30 06:18] LABS: CALCIUM 8.7 mg/dL (8.5-10.3)
[2018-12-30 06:28] LABS: CREATININE 0.8 mg/dL (0.4-1.0)
[2018-12-30] MEDS: FUROSEMIDE 20 MG/2 ML VIAL IVP SCH ×2 (06:53→13:28)
[2018-12-30 07:45] LABS: ABG BASE EXCESS -2.5 mmol/L (-2.0-3.0); ABG HCO3 23.6 mmol/L (22.0-26.0); ABG PCO2 45 mmHg (34-45); ABG PH 7.34 (7.35-7.45); ABG PO2 93 mmHg (80-100)
[2018-12-30 07:46] LABS: ABG OXYGEN SATURATION 96 % (94-98)
[2018-12-30] MEDS ORDERED: POTASSIUM CHLORIDE 20 MEQ TABLET PO SCH (08:00)
[2018-12-30] MEDS ORDERED: ENOXAPARIN 30 MG/0.3 ML SYRINGE SUBQ SCH (09:00)
[2018-12-30] MEDS: ENOXAPARIN 40 MG/0.4 ML SYRINGE SUBQ SCH (09:24)
[2018-12-30] MEDS: NICOTINE 14 MG PATCH TOP SCH (10:38)
[2018-12-30] MEDS: POLYETHYLENE GLYCOL 3350 17 GM PACKET PO SCH (10:39)
[2018-12-30] MEDS: FAMOTIDINE 20 MG TABLET PO SCH (10:39)
[2018-12-30] MEDS: ASPIRIN EC 81 MG TABLET PO SCH (10:39)
[2018-12-30] MEDS: METOPROLOL TARTRATE 25 MG TABLET PO SCH (10:39)
[2018-12-30] MEDS: MULTIVITAMIN TABLET PO SCH (10:39)
--- NOTE | 2018-12-30 12:57 | PROVIDER PROGRESS NOTE ---
Subjective - Prog Note Date Prog Note Date: 12/30/18 Prog Note Time: 12:55 - Subjective Pt reports feeling: Worse Subjective: Patient with SOB and required 5L NC, denies chest pain, joint pain, or bleeding Current Medications - Current Medications Current Medications: Active Medications Acetaminophen (Tylenol) 650 mg PO Q4HR PRN PRN Reason: Pain 1 to 4 Aspirin (Ecotrin) 81 mg PO DAILY [facility] Last Admin: 12/30/18 10:39 Dose: 81 mg Enoxaparin Sodium (Lovenox) 40 mg SUBQ DAILY [facility] Last Admin: 12/30/18 09:24 Dose: 40 mg Famotidine (Pepcid) 20 mg PO DAILY [facility] Last Admin: 12/30/18 10:39 Dose: 20 mg Furosemide (Lasix Inj 20mg Vial) 20 mg IVP BIDDIURETIC [facility] Last Admin: 12/30/18 06:53 Dose: 20 mg Levalbuterol HCl (Xopenex) 1.25 mg INH Q4H PRN PRN Reason: Shortness of Air/Wheezing Metoprolol Tartrate (Lopressor) 25 mg PO BID [facility] Last Admin: 12/30/18 10:39 Dose: 25 mg Morphine Sulfate (Morphine (Carpuject)) 2 mg IVP Q2HR PRN PRN Reason: Dyspnea Last Admin: 12/30/18 00:04 Dose: 2 mg Multivitamins (Theragran) 1 tab PO DAILY [facility] Last Admin: 12/30/18 10:39 Dose: 1 tab Nicotine (Nicoderm) 1 patch TOP DAILY [facility] Last Admin: 12/30/18 10:38 Dose: 1 patch Patient Own Med ( (Revatio 5 Mg)) 1 each PO TID [facility] Polyethylene Glycol (Miralax) 17 gm PO DAILY [facility] Last Admin: 12/30/18 10:39 Dose: 17 gm Potassium Chloride (K-Dur) 20 meq PO DAILYWM [facility] Last Admin: 12/30/18 10:39 Dose: 20 meq Prochlorperazine Edisylate (Compazine Inj) 10 mg IVP Q6HR PRN PRN Reason: Nausea / Vomiting Last Admin: 12/30/18 00:51 Dose: 10 mg Sodium Chloride (Normal Saline Flush 0.9%) 10 ml IVP PRN PRN PRN Reason: NEEDED PER PROVIDER ORDERS Last Admin: 12/30/18 06:56 Dose: 10 ml Sodium Chloride (Normal Saline Flush 0.9%) 10 ml IVP 0100,0900,1700 KAILEE Last Admin: 12/30/18 10:38 Dose: 10 ml Calcium Carbonate [Tums (Calcium Carbonate 500mg)] 500 mg PO BID 08/02/17 Multivitamin [Multivitamins] 1 each PO DAILY 08/02/17 Spironolactone 25 mg PO DAILY 12/29/18 Objective - Vital Signs/Intake & Output Reviewed Vital Signs: Yes Vital Signs: Vital Signs x48h Temp Pulse Pulse Resp BP BP Pulse Ox 12/30/18 11:12 36 C L 89 22 96 12/30/18 10:39 136/99 H 12/30/18 08:00 36.0 C L 89 18 136/99 H 91 L Intake & Output: Intake & Output 12/27/18 12/28/18 12/29/18 12/30/18 23:59 23:59 23:59 23:59 Intake Total 640 640 Output Total 450 1600 Balance 190 -960 - Objective General Appearance: positive: Alert, Mild distress, Anxious, Other (cachexia, thin and malnourihed appearance) Eyes Bilateral: positive: Normal inspection, PERRL, EOMI, Conjunctivae nml ENT: positive: ENT inspection nml, Pharynx nml, No signs of dehydration Neck: positive: Thyroid nml, Trachea midline. negative: Thyromegaly, Carotid bruit Respiratory: positive: Chest non-tender, No respiratory distress, Rales, Rhonchi. negative: Wheezes Cardiovascular: positive: Regular rate & rhythm, No gallop, JVD present, Systolic murmur, Diastolic murmur Peripheral Pulses: 1+ Radial (R), 1+ Radial (L), 1+ Dorsalis pedis (R), 1+ Dorsalis pedis (L) Abdomen: positive: Non-tender, No organomegaly, Nml bowel sounds, No distention. negative: Tenderness, Hepatomegaly, Splenomegaly Skin: positive: No rash, Cyanosis (blue purple like all fingers, hands with slough to digits), Other Extremities: positive: Non-tender, Other (2+ edema up to bilateral knees, cyanotic BL hand/digits). negative: Joint swelling - Lab Results Fish Bones: 12/30/18 05:36 12/30/18 05:36 Other Labs: Lab Results x24hrs 12/30/18 12/30/18 12/30/18 Range/Units 07:34 05:36 05:36 WBC (4.8-10.8) x10^3/uL RBC (4.20-5.40) 10^6/uL Hgb (12.0-16.0) g/dL Hct (37.0-47.0) % MCV (81.0-99.0) fL MCH (27.0-31.0) pg MCHC (32.0-36.0) g/dL RDW (12.0-15.0) % Plt Count (130-450) 10^3/uL MPV (7.9-10.8) fL Neut # (Auto) (1.5-6.6) 10^3/uL Lymph # (Auto) (1.5-3.5) 10^3/uL [place] # (Auto) (0.0-1.0) 10^3/uL Eos # (Auto) (0.0-0.7) 10^3/uL Baso # (Auto) (0.0-0.1) 10^3/uL Absolute Nucleated RBC x10^3/uL Nucleated RBC % /100WBC PT (9.9-12.6) secs INR (0.8-1.2) Bld Gas Analysis Time 0743 Sample Site RIGHT BRACHIAL ABG pH 7.34 L (7.35-7.45) ABG pCO2 45 (34-45) mmHg ABG pO2 93 (80-100) mmHg ABG HCO3 23.6 (22.0-26.0) mmol/L ABG Total CO2 25.0 (21.0-29.0) MMOL/L ABG O2 Saturation 96 (94-98) % ABG Base Excess -2.5 L (-2.0-3.0) mmol/L Nam Test NOT APPLICABLE O2 Delivery Device NASAL CANNULA O2 Liters/Min 5.00 LPM Sodium (135-145) mmol/L Potassium (3.5-5.0) mmol/L Chloride (101-111) mmol/L Carbon Dioxide (21-32) mmol/L Anion Gap (6-13) BUN (6-20) mg/dL Creatinine (0.4-1.0) mg/dL Estimated GFR (MDRD) (>89) Glucose (70-100) mg/dL Calcium (8.5-10.3) mg/dL Magnesium (1.7-2.8) mg/dL Total Bilirubin (0.2-1.0) mg/dL AST (10-42) IU/L ALT (10-60) IU/L Alkaline Phosphatase (42-121) IU/L Troponin I (<0.49) ng/mL B-Natriuretic Peptide 1491 H (5-100) pg/mL Total Protein (6.7-8.2) g/dL Albumin (3.2-5.5) g/dL Globulin (2.1-4.2) g/dL Albumin/Globulin Ratio (1.0-2.2) Vitamin B12 1217 H (180-914) pg/mL Folate 31.00 (5.90 - >24.8) ng/mL Urine Color Urine Clarity (CLEAR) Urine pH (5.0-7.5) PH Ur Specific Ponce (1.002-1.030) Urine Protein (NEGATIVE) mg/dL Urine Glucose (UA) (NEGATIVE) mg/dL Urine Ketones (NEGATIVE) mg/dL Urine Occult Blood (NEGATIVE) Urine Nitrite (NEGATIVE) Urine Bilirubin (NEGATIVE) Urine Urobilinogen (NORMAL) E.U./dL Ur Leukocyte Esterase (NEGATIVE) Urine RBC (0-5) /HPF Urine WBC (0-5) /HPF Ur Squamous Epith Cells (<= Few) Urine Bacteria (None Seen) /HPF Urine Mucus Urine Culture Comments 12/30/18 12/30/18 12/29/18 Range/Units 05:36 05:36 19:00 WBC 5.8 (4.8-10.8) x10^3/uL RBC 4.35 (4.20-5.40) 10^6/uL Hgb 14.7 (12.0-16.0) g/dL Hct 46.7 (37.0-47.0) % MCV 107.4 H (81.0-99.0) fL MCH 33.7 H (27.0-31.0) pg MCHC 31.4 L (32.0-36.0) g/dL RDW 17.2 H (12.0-15.0) % Plt Count 113 L (130-450) 10^3/uL MPV 8.3 (7.9-10.8) fL Neut # (Auto) 3.8 (1.5-6.6) 10^3/uL Lymph # (Auto) 1.5 (1.5-3.5) 10^3/uL [place] # (Auto) 0.4 (0.0-1.0) 10^3/uL Eos # (Auto) 0.1 (0.0-0.7) 10^3/uL Baso # (Auto) 0.1 (0.0-0.1) 10^3/uL Absolute Nucleated RBC 0.01 x10^3/uL Nucleated RBC % 0.1 /100WBC PT (9.9-12.6) secs INR (0.8-1.2) Bld Gas Analysis Time Sample Site ABG pH (7.35-7.45) ABG pCO2 (34-45) mmHg ABG pO2 (80-100) mmHg ABG HCO3 (22.0-26.0) mmol/L ABG Total CO2 (21.0-29.0) MMOL/L ABG O2 Saturation (94-98) % ABG Base Excess (-2.0-3.0) mmol/L Nam Test O2 Delivery Device O2 Liters/Min LPM Sodium 144 (135-145) mmol/L Potassium 3.9 (3.5-5.0) mmol/L Chloride 108 (101-111) mmol/L Carbon Dioxide 22 (21-32) mmol/L Anion Gap 14.0 H (6-13) BUN 33 H (6-20) mg/dL Creatinine 0.8 (0.4-1.0) mg/dL Estimated GFR (MDRD) 71 L (>89) Glucose 133 H (70-100) mg/dL Calcium 8.7 (8.5-10.3) mg/dL Magnesium 2.0 (1.7-2.8) mg/dL Total Bilirubin (0.2-1.0) mg/dL AST (10-42) IU/L ALT (10-60) IU/L Alkaline Phosphatase (42-121) IU/L Troponin I (<0.49) ng/mL B-Natriuretic Peptide (5-100) pg/mL Total Protein (6.7-8.2) g/dL Albumin (3.2-5.5) g/dL Globulin (2.1-4.2) g/dL Albumin/Globulin Ratio (1.0-2.2) Vitamin B12 (180-914) pg/mL Folate (5.90 - >24.8) ng/mL Urine Color YELLOW Urine Clarity CLEAR (CLEAR) Urine pH 6.0 (5.0-7.5) PH Ur Specific [place]once 1.025 (1.002-1.030) Urine Protein 100 H (NEGATIVE) mg/dL Urine Glucose (UA) NEGATIVE (NEGATIVE) mg/dL Urine Ketones NEGATIVE (NEGATIVE) mg/dL Urine Occult Blood TRACE-INTA (NEGATIVE) Urine Nitrite NEGATIVE (NEGATIVE) Urine Bilirubin NEGATIVE (NEGATIVE) Urine Urobilinogen 0.2 (NORMAL) (NORMAL) E.U./dL Ur Leukocyte Esterase NEGATIVE (NEGATIVE) Urine RBC 0-5 (0-5) /HPF Urine WBC 6-10 H (0-5) /HPF Ur Squamous Epith Cells MOD Squamous H (<= Few) Urine Bacteria Few (None Seen) /HPF Urine Mucus Moderate Strands Urine Culture Comments NOT INDICATED 12/29/18 12/29/18 12/29/18 Range/Units 17:15 17:15 17:15 WBC (4.8-10.8) x10^3/uL RBC (4.20-5.40) 10^6/uL Hgb (12.0-16.0) g/dL Hct (37.0-47.0) % MCV (81.0-99.0) fL MCH (27.0-31.0) pg MCHC (32.0-36.0) g/dL RDW (12.0-15.0) % Plt Count (130-450) 10^3/uL MPV (7.9-10.8) fL Neut # (Auto) (1.5-6.6) 10^3/uL Lymph # (Auto) (1.5-3.5) 10^3/uL [place] # (Auto) (0.0-1.0) 10^3/uL Eos # (Auto) (0.0-0.7) 10^3/uL Baso # (Auto) (0.0-0.1) 10^3/uL Absolute Nucleated RBC x10^3/uL Nucleated RBC % /100WBC PT (9.9-12.6) secs INR (0.8-1.2) Bld Gas Analysis Time Sample Site ABG pH (7.35-7.45) ABG pCO2 (34-45) mmHg ABG pO2 (80-100) mmHg ABG HCO3 (22.0-26.0) mmol/L ABG Total CO2 (21.0-29.0) MMOL/L ABG O2 Saturation (94-98) % ABG Base Excess (-2.0-3.0) mmol/L Nam Test O2 Delivery Device O2 Liters/Min LPM Sodium 145 (135-145) mmol/L Potassium 3.3 L (3.5-5.0) mmol/L Chloride 109 (101-111) mmol/L Carbon Dioxide 27 (21-32) mmol/L Anion Gap 9.0 (6-13) BUN 30 H (6-20) mg/dL Creatinine 0.7 (0.4-1.0) mg/dL Estimated GFR (MDRD) 83 L (>89) Glucose 100 (70-100) mg/dL Calcium 8.8 (8.5-10.3) mg/dL Magnesium (1.7-2.8) mg/dL Total Bilirubin 1.0 (0.2-1.0) mg/dL AST 25 (10-42) IU/L ALT 16 (10-60) IU/L Alkaline Phosphatase 52 (42-121) IU/L Troponin I < 0.04 (<0.49) ng/mL B-Natriuretic Peptide 1720 H (5-100) pg/mL Total Protein 6.3 L (6.7-8.2) g/dL Albumin 3.6 (3.2-5.5) g/dL Globulin 2.7 (2.1-4.2) g/dL Albumin/Globulin Ratio 1.3 (1.0-2.2) Vitamin B12 (180-914) pg/mL Folate (5.90 - >24.8) ng/mL Urine Color Urine Clarity (CLEAR) Urine pH (5.0-7.5) PH Ur Specific [place]once (1.002-1.030) Urine Protein (NEGATIVE) mg/dL Urine Glucose (UA) (NEGATIVE) mg/dL Urine Ketones (NEGATIVE) mg/dL Urine Occult Blood (NEGATIVE) Urine Nitrite (NEGATIVE) Urine Bilirubin (NEGATIVE) Urine Urobilinogen (NORMAL) E.U./dL Ur Leukocyte Esterase (NEGATIVE) Urine RBC (0-5) /HPF Urine WBC (0-5) /HPF Ur Squamous Epith Cells (<= Few) Urine Bacteria (None Seen) /HPF Urine Mucus Urine Culture Comments 12/29/18 12/29/18 Range/Units 17:15 17:15 WBC 4.5 L (4.8-10.8) x10^3/uL RBC 4.16 L (4.20-5.40) 10^6/uL Hgb 14.1 (12.0-16.0) g/dL Hct 42.8 (37.0-47.0) % MCV 102.9 H (81.0-99.0) fL MCH 33.9 H (27.0-31.0) pg MCHC 32.9 (32.0-36.0) g/dL RDW 16.4 H (12.0-15.0) % Plt Count 124 L (130-450) 10^3/uL MPV 7.7 L (7.9-10.8) fL Neut # (Auto) 2.3 (1.5-6.6) 10^3/uL Lymph # (Auto) 1.7 (1.5-3.5) 10^3/uL [place] # (Auto) 0.3 (0.0-1.0) 10^3/uL Eos # (Auto) 0.1 (0.0-0.7) 10^3/uL Baso # (Auto) 0.1 (0.0-0.1) 10^3/uL Absolute Nucleated RBC 0.00 x10^3/uL Nucleated RBC % 0.1 /100WBC PT 13.7 H (9.9-12.6) secs INR 1.2 (0.8-1.2) Bld Gas Analysis Time Sample Site ABG pH (7.35-7.45) ABG pCO2 (34-45) mmHg ABG pO2 (80-100) mmHg ABG HCO3 (22.0-26.0) mmol/L ABG Total CO2 (21.0-29.0) MMOL/L ABG O2 Saturation (94-98) % ABG Base Excess (-2.0-3.0) mmol/L Nam Test O2 Delivery Device O2 Liters/Min LPM Sodium (135-145) mmol/L Potassium (3.5-5.0) mmol/L Chloride (101-111) mmol/L Carbon Dioxide (21-32) mmol/L Anion Gap (6-13) BUN (6-20) mg/dL Creatinine (0.4-1.0) mg/dL Estimated GFR (MDRD) (>89) Glucose (70-100) mg/dL Calcium (8.5-10.3) mg/dL Magnesium (1.7-2.8) mg/dL Total Bilirubin (0.2-1.0) mg/dL AST (10-42) IU/L ALT (10-60) IU/L Alkaline Phosphatase (42-121) IU/L Troponin I (<0.49) ng/mL B-Natriuretic Peptide (5-100) pg/mL Total Protein (6.7-8.2) g/dL Albumin (3.2-5.5) g/dL Globulin (2.1-4.2) g/dL Albumin/Globulin Ratio (1.0-2.2) Vitamin B12 (180-914) pg/mL Folate (5.90 - >24.8) ng/mL Urine Color Urine Clarity (CLEAR) Urine pH (5.0-7.5) PH Ur Specific [place] (1.002-1.030) Urine Protein (NEGATIVE) mg/dL Urine Glucose (UA) (NEGATIVE) mg/dL Urine Ketones (NEGATIVE) mg/dL Urine Occult Blood (NEGATIVE) Urine Nitrite (NEGATIVE) Urine Bilirubin (NEGATIVE) Urine Urobilinogen (NORMAL) E.U./dL Ur Leukocyte Esterase (NEGATIVE) Urine RBC (0-5) /HPF Urine WBC (0-5) /HPF Ur Squamous Epith Cells (<= Few) Urine Bacteria (None Seen) /HPF Urine Mucus Urine Culture Comments - Diagnostic Imaging Diagnostic Imaging Results: positive: Final report reviewed ABX Reporting Has patient been on IV antibiotics over the past 48 hours?: No Assessment/Plan - Problem List (1) Acute on chronic respiratory failure with hypoxia and hypercapnia Impression: ABG shows pc02 45.2, po2 92.7, Ph 7.335, bicarb 23.6. Patient is home o2 dependent and would continue with 4-5L NC for now, nebs, pulmonary toilet, spirometry, would need to address underlying conditions of COPD with pulmonary fibrosis and likely cor-pulmonale with systolic and diastolic HF and severe pulmonary HTN all causes for V?Q mismatching. Optimize medical magmt, addition of Revatio should improve her respiratory status. May need intermittent bipap. (2) COPD (chronic obstructive pulmonary disease) with emphysema Impression: Continue with nebs, jeanette, pulmonary toilet, solumedrol, singulair, pulmicort, oxygen via NC, serial ABG's if worsening pox, with Bipap prn if needed. Qualifiers: Emphysema type: unspecified Qualified Code(s): J43.9 - Emphysema, unspec ified (3) Systolic and diastolic CHF w/reduced LV function, NYHA class 4 Impression: New onset systolic HF with EF 25-30% with chronic pulm HTN and right sided failure (Cor-pulmonale) as evidenced by RSVP 72 mmhg and abnormal ecg, evidence of mod-severe WA/TR also seen, global hypokinesis present. Will now need address with guideline directed medical tx with ARNI/ANTONY-inh Beta blockade, diuretics, revatio for severe PAH to titrate to therapeutic response. Fluid restriction of 1200 ml/24 hr free water. Meets criteria for palliative care consult. Will need cardiology as well as pulmonology as outpatient, ICD vs V[employer]UN[employer] tx if 2-3 months of GDMtx fails. (4) Pulmonary fibrosis Impression: Oxygenation via NC for now, would continue current management, jeanette, nebs, may or may not respond to steroids. (5) Macrocytic anemia Impression: No bleeding at this rtime with a vit b12/FA wnl. Continue to monitor. (6) Thrombocytopenia Impression: On lovenox as she would be high risk for DVT due to severe copd/PF and combined systolic/diast HF, would leave on lovenox for now and consider d/c if bleeding occurs or plts<100k (7) Hyperthyroidism Impression: Continue with synthroid (8) Raynauds phenomenon Impression: Patient with history of this may respond to vasodilation with revatio plus or minus CCB. Qualifiers: Raynaud?s-associated gangrene presence: without gangrene Qualified Code(s): I73.00 - Raynaud's syndrome without gangrene (9) Tobacco dependence Impression: Likely causing worsening and progression to her COPD/PF as well as raynaud's syndrome. Nicotine repalcement tx as well as smoking counseling, education and cessation.
[2018-12-30] MEDS: SILDENAFIL PO SCH ×3 (13:23→20:17)
[2018-12-30] MEDS: SPIRONOLACTONE 25 MG TABLET PO SCH ×2 (15:30→20:17)
[2018-12-30] MEDS: CARVEDILOL 3.125 MG TABLET PO SCH ×2 (15:30→20:16)
[2018-12-30] MEDS: MONTELUKAST 10 MG TABLET PO SCH (20:16)
[2018-12-30] MEDS: BUDESONIDE 0.5 MG/2 ML NEB INH SCH (20:40)
[2018-12-31] MEDS: FUROSEMIDE 20 MG/2 ML VIAL IVP SCH (06:10)
[2018-12-31 06:12] LABS: BASOPHILS # (AUTO) 0.1 10^3/uL (0.0-0.1); BASOPHILS % (AUTO) 1.3 %; EOSINOPHILS % (AUTO) 0.5 %; HGB - HEMOGLOBIN 14.7 g/dL (12.0-16.0); LYMPHOCYTES # (AUTO) 1.5 10^3/uL (1.5-3.5); LYMPHOCYTES % (AUTO) 27.3 %; MEAN CORPUSCULAR HGB CONC 32.2 g/dL (32.0-36.0); MEAN CORPUSCULAR VOLUME 105.7 fL (81.0-99.0); MEAN PLATELET VOLUME 8.4 fL (7.9-10.8); MONOCYTES # (AUTO) 0.4 10^3/uL (0.0-1.0); MONOCYTES % (AUTO) 7.9 %; NEUTROPHILS # (AUTO) 3.5 10^3/uL (1.5-6.6); PLT - PLATELET COUNT 96 10^3/uL (130-450); RED BLOOD COUNT 4.33 10^6/uL (4.20-5.40); RED CELL DISTRIBUTION WIDTH 16.8 % (12.0-15.0); WHITE BLOOD COUNT 5.5 x10^3/uL (4.8-10.8)
[2018-12-31] MEDS: SODIUM CHLORIDE FLUSH 0.9% 10 ML SYRINGE IVP PRN ×2 (06:12→16:01)
[2018-12-31] MEDS: SODIUM CHLORIDE FLUSH 0.9% 10 ML SYRINGE IVP SCH ×3 (06:13→16:01)
[2018-12-31] MEDS: SILDENAFIL PO SCH (06:14)
[2018-12-31 06:20] LABS: CALCIUM 8.7 mg/dL (8.5-10.3); CREATININE 0.9 mg/dL (0.4-1.0); MAGNESIUM 1.8 mg/dL (1.7-2.8)
[2018-12-31 06:27] LABS: CHOL/HDL RATIO 2.8 (<4.4); CHOLESTEROL 111 mg/dL; HDL CHOLESTEROL 39 mg/dL; LDL CHOLESTEROL,CALCULATED 54 mg/dL; LDL/HDL RATIO 1.4 (<4.4); VLDL CHOLESTEROL 18 mg/dL
[2018-12-31] MEDS: BUDESONIDE 0.5 MG/2 ML NEB INH SCH ×2 (07:29→16:42)
[2018-12-31] MEDS: LEVALBUTEROL 1.25 MG/3 ML NEB INH PRN (07:29)
[2018-12-31] MEDS: POLYETHYLENE GLYCOL 3350 17 GM PACKET PO SCH (08:45)
[2018-12-31] MEDS: MULTIVITAMIN TABLET PO SCH (08:47)
[2018-12-31] MEDS: FAMOTIDINE 20 MG TABLET PO SCH (08:47)
[2018-12-31] MEDS: ENOXAPARIN 40 MG/0.4 ML SYRINGE SUBQ SCH (08:47)
[2018-12-31] MEDS: SPIRONOLACTONE 25 MG TABLET PO SCH ×2 (08:47→20:13)
[2018-12-31] MEDS: LISINOPRIL 5 MG TABLET PO SCH (08:47)
[2018-12-31] MEDS: ASPIRIN EC 81 MG TABLET PO SCH (08:48)
[2018-12-31] MEDS: NICOTINE 14 MG PATCH TOP SCH (08:48)
[2018-12-31] MEDS: CARVEDILOL 3.125 MG TABLET PO SCH ×2 (08:48→20:13)
[2018-12-31] MEDS ORDERED: REVATIO PO SCH (13:00)
[2018-12-31] MEDS: MORPHINE 2 MG/ML CARPUJECT IVP PRN ×2 (16:01→18:59)
--- NOTE | 2018-12-31 17:35 | PROVIDER PROGRESS NOTE ---
Subjective - Prog Note Date Prog Note Date: 12/31/18 Prog Note Time: 16:33 - Subjective Pt reports feeling: Improved (Patient reports improvement to her shortness of breath however appears to be physically deconditioned.) Current Medications - Current Medications Current Medications: Active Medications Acetaminophen (Tylenol) 650 mg PO Q4HR PRN PRN Reason: Pain 1 to 4 Aspirin (Ecotrin) 81 mg PO DAILY [facility] Last Admin: 12/31/18 08:48 Dose: 81 mg Budesonide (Pulmicort) 0.5 mg INH RTBID [facility] Last Admin: 12/31/18 16:42 Dose: 0.5 mg Carvedilol (Coreg) 3.125 mg PO BID [facility] Last Admin: 12/31/18 08:48 Dose: 3.125 mg Famotidine (Pepcid) 20 mg PO DAILY [facility] Last Admin: 12/31/18 08:47 Dose: 20 mg Furosemide (Lasix) 40 mg PO DAILY [facility] Levalbuterol HCl (Xopenex) 1.25 mg INH Q4H PRN PRN Reason: Shortness of Air/Wheezing Last Admin: 12/31/18 07:29 Dose: 1.25 mg Lisinopril (Zestril) 2.5 mg PO DAILY [facility] Last Admin: 12/31/18 08:47 Dose: 2.5 mg Montelukast Sodium (Singulair) 10 mg PO QPM [facility] Last Admin: 12/30/18 20:16 Dose: 10 mg Morphine Sulfate (Morphine (Carpuject)) 2 mg IVP Q2HR PRN PRN Reason: Dyspnea Last Admin: 12/31/18 16:01 Dose: 2 mg Multivitamins (Theragran) 1 tab PO DAILY [facility] Last Admin: 12/31/18 08:47 Dose: 1 tab Nicotine (Nicoderm) 1 patch TOP DAILY [facility] Last Admin: 12/31/18 08:48 Dose: 1 patch Polyethylene Glycol (Miralax) 17 gm PO DAILY [facility] Last Admin: 12/31/18 08:45 Dose: 17 gm Prochlorperazine Edisylate (Compazine Inj) 10 mg IVP Q6HR PRN PRN Reason: Nausea / Vomiting Last Admin: 12/30/18 13:28 Dose: 10 mg Sildenafil Citrate (Sildenafil) 20 mg PO DAILY [facility] Sodium Chloride (Normal Saline Flush 0.9%) 10 ml IVP PRN PRN PRN Reason: NEEDED PER PROVIDER ORDERS Last Admin: 12/31/18 16:01 Dose: 10 ml Sodium Chloride (Normal Saline Flush 0.9%) 10 ml IVP 0100,0900,1700 [facility] Last Admin: 12/31/18 16:01 Dose: 10 ml Spironolactone (Aldactone) 12.5 mg PO BID [facility] Last Admin: 12/31/18 08:47 Dose: 12.5 mg Calcium Carbonate [Tums (Calcium Carbonate 500mg)] 500 mg PO BID 08/02/17 Multivitamin [Multivitamins] 1 each PO DAILY 08/02/17 Spironolactone 25 mg PO DAILY 12/29/18 Objective - Vital Signs/Intake & Output Reviewed Vital Signs: Yes Vital Signs: Vital Signs x48h Temp Pulse Pulse Resp BP Pulse Ox 12/31/18 16:43 84 20 12/31/18 16:00 36 C L 97 20 143/93 H 97 12/31/18 11:38 36.7 C 87 18 102/77 97 Intake & Output: Intake & Output 12/28/18 12/29/18 12/30/18 12/31/18 23:59 23:59 23:59 23:59 Intake Total 640 1190 440 Output Total 450 2250 Balance 190 -1060 440 - Objective General Appearance: positive: Alert, Other (Mildly confused however is responsive to verbal command) Eyes Bilateral: positive: Normal inspection, PERRL, EOMI, Conjunctivae nml ENT: positive: ENT inspection nml, Pharynx nml, No signs of dehydration Neck: positive: Nml inspection, Thyroid nml, No JVD, Trachea midline. negative: Thyromegaly Respiratory: positive: Chest non-tender, No respiratory distress, Other (Mild decreased breath sounds bibasilarly). negative: Rales Cardiovascular: positive: Regular rate & rhythm, No gallop, PMI displaced laterally, Systolic murmur, Diastolic murmur. negative: JVD present Peripheral Pulses: 2+ Radial (R), 2+ Radial (L), 2+ Dorsalis pedis (R), 2+ Dorsalis pedis (L) Abdomen: positive: Non-tender, No organomegaly, Nml bowel sounds, No distention. negative: Tenderness Skin: positive: No rash, Cyanosis, Other (Patient withPurple bluish cyanotic digits) Extremities: positive: Non-tender, No pedal edema. negative: Joint swelling Neurologic/Psychiatric: positive: CN's nml (2-12), Disoriented to time, Weak ness, Depressed mood/affect - Lab Results Fish Bones: 12/31/18 05:15 12/31/18 05:15 Other Labs: Lab Results x24hrs 12/31/18 12/31/18 12/31/18 Range/Units 05:15 05:15 05:15 WBC 5.5 (4.8-10.8) x10^3/uL RBC 4.33 (4.20-5.40) 10^6/uL Hgb 14.7 (12.0-16.0) g/dL Hct 45.8 (37.0-47.0) % MCV 105.7 H (81.0-99.0) fL MCH 34.0 H (27.0-31.0) pg MCHC 32.2 (32.0-36.0) g/dL RDW 16.8 H (12.0-15.0) % Plt Count 96 L (130-450) 10^3/uL MPV 8.4 (7.9-10.8) fL Neut # (Auto) 3.5 (1.5-6.6) 10^3/uL Lymph # (Auto) 1.5 (1.5-3.5) 10^3/uL [place] # (Auto) 0.4 (0.0-1.0) 10^3/uL Eos # (Auto) 0.0 (0.0-0.7) 10^3/uL Baso # (Auto) 0.1 (0.0-0.1) 10^3/uL Absolute Nucleated RBC 0.00 x10^3/uL Nucleated RBC % 0.1 /100WBC Sodium 142 (135-145) mmol/L Potassium 4.2 (3.5-5.0) mmol/L Chloride 106 (101-111) mmol/L Carbon Dioxide 25 (21-32) mmol/L Anion Gap 11.0 (6-13) BUN 36 H (6-20) mg/dL Creatinine 0.9 (0.4-1.0) mg/dL Estimated GFR (MDRD) 62 L (>89) Glucose 124 H (70-100) mg/dL Calcium 8.7 (8.5-10.3) mg/dL Magnesium 1.8 (1.7-2.8) mg/dL Triglycerides 89 ( - 149) mg/dL Cholesterol 111 ( - 199) mg/dL LDL Cholesterol, Calc 54 ( - 129) mg/dL VLDL Cholesterol 18 mg/dL HDL Cholesterol 39 L (60 - ) mg/dL LDL/HDL Ratio 1.4 (<4.4) Cholesterol/HDL Ratio 2.8 (<4.4) - Diagnostic Imaging Diagnostic Imaging Results: positive: Final report reviewed ABX Reporting Has patient been on IV antibiotics over the past 48 hours?: No Assessment/Plan - Problem List (1) Systolic and diastolic CHF w/reduced LV function, NYHA class 4 Impression: AHA/ACC class C Heart failure. With a combination of Lasix and Aldactone patient has diuresed approximately more than 2 L urinary output. Continue with current medical management with guideline directed medical therapy and likely r eevaluation in approximately 3 months time as patient will be considered for AICD versus TOPPIECE CUTTER treatment based on her QRS interval. (3) Severe pulmonary arterial systolic hypertension Impression: Patient will be started on Revatio 20 mg p.o. daily to be titrated up as long as blood pressures are able to tolerate; may help with ray nods phenomenon possibly. Patient's 2D echo shows worsening pulmonary hypertension with RSVP of approximately 74 mmHg. (4) COPD (chronic obstructive pulmonary disease) with emphysema Impression: Continue current medical management. Oxygen dependent. Qualifiers: Emphysema type: unspecified Qualified Code(s): J43.9 - Emphysema, u nspecified (5) Pulmonary fibrosis Impression: Continue current medical management. Remains on 2 L nasal cannula oxygen dependent for now (6) Thrombocytopenia Impression: Likely secondary to Lovenox that will be discontinued and SCD boots will be placed (7) Raynauds phenomenon Impression: Patient has good 2+ pulses to radial as well as dorsalis pedis and a calcium channel blockade to continue patient will be started on her body apparently she had not been receiving this due to pharmacy limitations Qualifiers: Raynaud?s-associated gangrene presence: without gangrene Qualified Code(s): I73.00 - Raynaud's syndrome without gangrene (8) Tobacco dependence Impression: Currently on nicotine patch. Smoking education counseling and cessation encouraged (9) Failure to thrive in adult Impression: We will optimize medical and nutritional management. Likely secondary to medical conditions and newly diagnosed combined systolic diastolic heart failure with worsening severe pulmonary hypertension and oxygen dependency. (10) Cachexia Impression: We will optimize medical as well as nutritional management dietitian to be consulted. Consider placing on Remeron low-dose as well as Megace low-dose (11) Protein-calorie malnutrition, moderate Impression: Present on admission. Will provide supplementation as per dietitian as they would be consulted for optimizing nutritional management. Patient meets criteria for moderate protein calorie deficiency malnutrition. We will add Megace low-dose as well as Remeron low-dose to stimulate appetite and increase caloric intake. (12) Palliative care status Impression: Advanced care planning and counseling were dressed with palliative care services who has seen patient with deterioration and progressive severe pulmonary hypertension associated with luminary fibrosis along with decompensation of patient's combined systolic diastolic heart failure with hypokinesis and global involvement to 4 chambers, patient is willing to go to a penitentiary as patient has no social support per palliative service. Will address and optimize medical management for now.
--- NOTE | 2018-12-31 20:10 | CONSULTATION NOTE ---
Palliative Care Consultation - Referral Referring Provider: Devon Kellogg MD Time of Visit: 9:15-10:05 Referral setting: Hospitalized patient Referral Reason: COPD exac/Pulm Fibrosis/Goals of Care - Information Sources Records reviewed: RN notes reviewed, Previous records reviewed History/Review of Systems obtained from: Patient Exam limitations: Clinical condition (patient poor historian;) - History of Present Illness Brief History of Present Illness: Is a 68-year-old [place] woman who has had increasing weight loss, poor appetite, worsening shortness of breath, and increased edema. She has been admitted for systolic/diastolic CHF NYHA class IV, to have diuresed 2 L. She does have severe pulmonary hypertension and exacerbation of her COPD. She continues to smoke about a half a pack a day, she has send this for greater than 45 years. She was pending a CT scan of her chest, she does have a known pulmonary nodule from 2015 scan 9 x 7 mm. Concern for possibly a malignancy, given patient's progressive shortness of breath, weight loss, and ongoing fatigue. She presented acutely at the doctor's office, and was sent in for management. Patient does present with respiratory compromise, with any kind of conversation or bed mobility she does demonstrate respiratory effort. She does have a p roductive cough of clear sputum, with significant effort and shortness of breath with coughing. He does have poor circulation and blue fingers secondary to ray nods, with some deterioration of a couple fingertips, and this is a significant source of discomfort for her. She is a do not attempt resuscitation, she does express wishes congruent with this in the context of going "natural route", conc yoly about living too long, as well as her dislike of medications. Palliative care introduced to patient to set rapport, explore goals of care, as well as transition planning and need for ongoing support. Medical/Surgical History - Past Medical History Cardiovascular: reports: Congestive heart failure, Hypertension, Other (Raynauds ) Respiratory: reports: COPD, Emphysema, Shortness of breath, Other (pulmonary fibrosis) Neuro: reports: Headache/migraine Endocrine/Autoimmune: reports: HyPERthyroidism GI: reports: Ulcers, Other (tublular adenoma 05/13;) : reports: None HEENT: reports: Chronic vision loss Psych: reports: Depression Musculoskeletal: reports: Osteoarthritis Derm: reports: None MRSA Hx?: No - Past Surgical History General: reports: Appendectomy, Colonoscopy, EGD - Substance History Use: Uses substance without health or social issues: Tobacco Tobacco Details: Cigarettes Social History - Living Situation Living arrangement: At home Living Situation: Alone Support System: Patient reports she has 2 sons, she did come up here to help with son's family. He is in the [place]. They left shortly after to [place]. She does feel abandoned. She reports she came from [place] in 1972. She has worked very hard, reports she had poor health as it was exposed to many things related to her work and after the war as young child. Family History - Family History Family History: Mother: , Father: Medications/Allergies - Medications Active Medication List: Active Medications Acetaminophen (Tylenol) 650 mg PO Q4HR PRN PRN Reason: Pain 1 to 4 Aspirin (Ecotrin) 81 mg PO DAILY [facility] Last Admin: 12/31/18 08:48 Dose: 81 mg Budesonide (Pulmicort) 0.5 mg INH RTBID [facility] Last Admin: 12/31/18 16:42 Dose: 0.5 mg Carvedilol (Coreg) 3.125 mg PO BID [facility] Last Admin: 12/31/18 08:48 Dose: 3.125 mg Famotidine (Pepcid) 20 mg PO DAILY [facility] Last Admin: 12/31/18 08:47 Dose: 20 mg Furosemide (Lasix) 40 mg PO DAILY [facility] Levalbuterol HCl (Xopenex) 1.25 mg INH Q4H PRN PRN Reason: Shortness of Air/Wheezing Last Admin: 12/31/18 07:29 Dose: 1.25 mg Lisinopril (Zestril) 2.5 mg PO DAILY [facility] Last Admin: 12/31/18 08:47 Dose: 2.5 mg Megestrol Acetate (Megace) 400 mg PO DAILY [facility] Mirtazapine (Remeron) 7.5 mg PO QPM [facility] Montelukast Sodium (Singulair) 10 mg PO QPM [facility] Last Admin: 12/30/18 20:16 Dose: 10 mg Morphine Sulfate (Morphine (Carpuject)) 2 mg IVP Q2HR PRN PRN Reason: Dyspnea Last Admin: 12/31/18 18:59 Dose: 2 mg Multivitamins (Theragran) 1 tab PO DAILY [facility] Last Admin: 12/31/18 08:47 Dose: 1 tab Nicotine (Nicoderm) 1 patch TOP DAILY [facility] Last Admin: 12/31/18 08:48 Dose: 1 patch Polyethylene Glycol (Miralax) 17 gm PO DAILY [facility] Last Admin: 12/31/18 08:45 Dose: 17 gm Prochlorperazine Edisylate (Compazine Inj) 10 mg IVP Q6HR PRN PRN Reason: Nausea / Vomiting Last Admin: 12/30/18 13:28 Dose: 10 mg Sildenafil Citrate (Sildenafil) 20 mg PO DAILY [facility] Sodium Chloride (Normal Saline Flush 0.9%) 10 ml IVP PRN PRN PRN Reason: NEEDED PER PROVIDER ORDERS Last Admin: 12/31/18 16:01 Dose: 10 ml Sodium Chloride (Normal Saline Flush 0.9%) 10 ml IVP 0100,0900,1700 [facility] Last Admin: 12/31/18 16:01 Dose: 10 ml Spironolactone (Aldactone) 12.5 mg PO BID [facility] Last Admin: 12/31/18 08:47 Dose: 12.5 mg Calcium Carbonate [Tums (Calcium Carbonate 500mg)] 500 mg PO BID 08/02/17 Multivitamin [Multivitamins] 1 each PO DAILY 08/02/17 Spironolactone 25 mg PO DAILY 12/29/18 - Allergies Allergies/Adverse Reactions: Allergies Allergy/AdvReac Type Severity Reaction Status Date / Time No Known Drug Allergies Allergy Verified 01/31/18 15:16 Review of Systems - Constitutional Constitutional: reports: Fatigue, Weight gain (related to fluid; patient had been having increased weight loss prior) - Eyes Eyes: reports: Vision loss - Ears, Nose & Throat Ears, Nose & Throat: reports: Hearing loss - Cardiovascular Cardiovascular: reports: Edema, Exertional dyspnea, Decr. exercise tolerance - Respiratory Respiratory: reports: Cough, SOB at rest, SOB with exertion, Other (reports has tried oxygen but did not "work" unable to discern if has it at home) - Gastrointestinal Gastrointestinal: reports: Abdominal pain, Poor appetite, Early satiety, Other (unclear if has food scarcity) - Musculoskeletal Musculoskeletal: reports: Muscle weakness - Integumentary Integumentary: reports: Dryness - Neurological Neurological: reports: General weakness - Psychiatric Psychiatric: reports: Depression, Anxiety - Endocrine Endocrine: reports: Hyperthyroidism - All Other Systems All Other Systems: reports: Other (limited ROS; patient with fatigue) Physical Exam - Vital Signs Vital Signs: Vital Signs x48h Temp Pulse Pulse Resp BP Pulse Ox 12/31/18 16:43 84 20 12/31/18 16:00 36 C L 97 20 143/93 H 97 - Physical Exam General Appearance: positive: Moderate distress, Anxious, Lethargic Eyes Bilateral: positive: Normal inspection Neck: positive: No JVD, Trachea midline Cardiovascular: positive: Regular rate & rhythm Respiratory: positive: Diminished throughout, Other (noted respiratory effort with conversation or bed mobility) Skin: positive: Pallor, Dryness, Bruising Extremities: positive: No pedal edema Neurologic/Psychiatric: positive: Weakness, Depressed mood/affect, Flat affect, Other (unable to determine orientation; unclear if language barrier in answer to some of questions) Palliative Care - POLST Patient has POLST: Yes POLST Status: DNR (FULL treatment filled out with Dr. Nina on admit with advanced care planning document;) Pain: Location (pain bilaterally in hands/finger tips; headache) Tiredness/Fatigue: Severe (7-10) Drowsiness/Sedation: Moderate (4-6) Dyspnea: Severe (7-10) Feelings of wellbeing/Perceived Quality of Life: Poor, Worsening Performance Status: Patient appears quite frail, with any kind of conversation or bed mobility does demonstrate respiratory effort. Patient reports lives in her own apartment, and does work intermittently. As you put everything is getting harder. Currently appears quite frail, deconditioned. - Palliative Care Discussion: Patient perceives she is getting worse, she is unable to articulate what her understanding of her illnesses. Her understanding is they are doing what they can, and on discharge she will be told everything. She is quite concerned about her current situation, being able to take care of herself, as best I can discern she lives in an apartment by herself. She reports she just sits in the room, she does puzzles and reads books. She reports "I am alone". When asked about the concerns or worries, she reports "I think I have lived too long". She says we keep people going too long on medications, we do not let people a natural . She reports she has been getting worse but has not been paying attention, she is able to tell me she has been to cardiology and pulmonology but they did not have anything to offer her. She is quite willing to go to a home, to be able to get better. She appears very depressed, she states several times that there is suffering annoying and suffering and not knowing; 1 comes in the world alone and goes out of the world alone, came in empty and leave empty;. She reports she does not have very good kb, she feels mormon had betrayed her, does acknowledge this is more to do with people. She is unable to identify any support system, she has not called her son in [place], was not able to discern where her second son was. She is quite proud of coming here from [place], she reports she did learn [place] on her own, and has worked many jobs and worked very hard over the years. She does not proceed she has a life nor does she want to depend on anything other than something natural. Patient is hoping to feel better, get stronger, and by the place "where she can live that is better for her". Results - Lab Results Lab results reviewed: Yes Fish Bones: 12/31/18 05:15 12/31/18 05:15 Lab and Imaging Results: Lab Results x24hrs 12/31/18 12/31/18 12/31/18 Range/Units 05:15 05:15 05:15 WBC 5.5 (4.8-10.8) x10^3/uL RBC 4.33 (4.20-5.40) 10^6/uL Hgb 14.7 (12.0-16.0) g/dL Hct 45.8 (37.0-47.0) % MCV 105.7 H (81.0-99.0) fL MCH 34.0 H (27.0-31.0) pg MCHC 32.2 (32.0-36.0) g/dL RDW 16.8 H (12.0-15.0) % Plt Count 96 L (130-450) 10^3/uL MPV 8.4 (7.9-10.8) fL Neut # (Auto) 3.5 (1.5-6.6) 10^3/uL Lymph # (Auto) 1.5 (1.5-3.5) 10^3/uL [place] # (Auto) 0.4 (0.0-1.0) 10^3/uL Eos # (Auto) 0.0 (0.0-0.7) 10^3/uL Baso # (Auto) 0.1 (0.0-0.1) 10^3/uL Absolute Nucleated RBC 0.00 x10^3/uL Nucleated RBC % 0.1 /100WBC Sodium 142 (135-145) mmol/L Potassium 4.2 (3.5-5.0) mmol/L Chloride 106 (101-111) mmol/L Carbon Dioxide 25 (21-32) mmol/L Anion Gap 11.0 (6-13) BUN 36 H (6-20) mg/dL Creatinine 0.9 (0.4-1.0) mg/dL Estimated GFR (MDRD) 62 L (>89) Glucose 124 H (70-100) mg/dL Calcium 8.7 (8.5-10.3) mg/dL Magnesium 1.8 (1.7-2.8) mg/dL Triglycerides 89 ( - 149) mg/dL Cholesterol 111 ( - 199) mg/dL LDL Cholesterol, Calc 54 ( - 129) mg/dL VLDL Cholesterol 18 mg/dL HDL Cholesterol 39 L (60 - ) mg/dL LDL/HDL Ratio 1.4 (<4.4) Cholesterol/HDL Ratio 2.8 (<4.4) Impression and Recommendations - Palliative Care Impression: This is a 68-year-old woman who presents with a significant deterioration in her baseline health, she does have known underlying pulmonary hypertension and COPD, presents today with acute symptoms of systolic/diastolic CHF NYHA class IV, severe dyspnea, weight loss, fatigue, and symptoms of moderate to severe depression. Palliative care to initiate rapport and support, patient willing to engage but limited by fatigue. Recommendations/Counseling Done: 1. Depression. Patient does present with symptoms of hopelessness and helplessness related to decline in health, social situation, and perceives herself as "a loner". She is not able to identify any sources of community support, nor support for a transition plan or help on discharge. Patient may benefit from initiation of mirtazapine for both appetite stimulant and treatment of depression, patient dislikes medications, I suspect medication adherence she will be a challenge. 2. Dyspnea, this is multifactorial in origin, including CHF with fluid overload, severe pulmonary hypertension, exacerbation of COPD, and deconditioning. Unclear if patient has oxygen set up at home, has had in the past, Dr. Wright was unable to confirm if still had it. Oxygen therapy in the face of tobacco abuse disorder, always provides a challenge for safety. 3. Generalized weakness. Patient does have limited endurance, it does appear her functional status is declined per her report. Patient does need to be independent. Would recommend physical therapy evaluation to evaluate for possible SNF placement. 4. Advanced care planning. Would recommend clinical staff continue to work with her in the understanding of her underlying illness. Patient did complete a [facility], though given the conversation today regarding her belief system around not wanting to depend on anything not natural, and allowing a natural , most likely would be selected her comfort focused treatment versus full treatment. Patient was quite fatigued, and requested we continue our conversation later. We will revisit this again after have defined better care plan. Patient was to receive a CT scan of her chest to follow-up on concerns for a malignant process, given her acute decline may be of benefit for to have this information for longer term planning and goals of care. Time Spent: 50 minutes with greater than 50% of the ascending counseling coordination of care with DIRECTOR OF EVENT MANAGEMENT and hospitalist as well as anticipatory guidance and exploration of goals of care.
[2018-12-31] MEDS: MIRTAZAPINE 15 MG TABLET PO SCH (20:13)
[2018-12-31] MEDS: MONTELUKAST 10 MG TABLET PO SCH (20:13)
[2019-01-01] MEDS: LEVALBUTEROL 1.25 MG/3 ML NEB INH PRN ×3 (01:26→13:41)
[2019-01-01] MEDS: SODIUM CHLORIDE FLUSH 0.9% 10 ML SYRINGE IVP SCH ×3 (01:32→16:14)
[2019-01-01] MEDS: MINERAL OIL/PETROLAT OPHTH OINT EACHEYE PRN (01:32)
[2019-01-01] MEDS: BUDESONIDE 0.5 MG/2 ML NEB INH SCH ×2 (06:11→20:45)
[2019-01-01 07:14] LABS: BASOPHILS # (AUTO) 0.1 10^3/uL (0.0-0.1); BASOPHILS % (AUTO) 1.1 %; EOSINOPHILS % (AUTO) 0.6 %; HGB - HEMOGLOBIN 14.6 g/dL (12.0-16.0); LYMPHOCYTES # (AUTO) 1.9 10^3/uL (1.5-3.5); LYMPHOCYTES % (AUTO) 23.2 %; MEAN CORPUSCULAR HEMOGLOBIN 34.3 pg (27.0-31.0); MEAN CORPUSCULAR HGB CONC 33.2 g/dL (32.0-36.0); MEAN CORPUSCULAR VOLUME 103.3 fL (81.0-99.0); MEAN PLATELET VOLUME 8.5 fL (7.9-10.8); MONOCYTES # (AUTO) 0.8 10^3/uL (0.0-1.0); MONOCYTES % (AUTO) 9.6 %; NEUTROPHILS # (AUTO) 5.3 10^3/uL (1.5-6.6); NEUTROPHILS % (AUTO) 65.5 %; PLT - PLATELET COUNT 97 10^3/uL (130-450); RED BLOOD COUNT 4.26 10^6/uL (4.20-5.40); WHITE BLOOD COUNT 8.1 x10^3/uL (4.8-10.8)
[2019-01-01 07:39] LABS: CALCIUM 8.8 mg/dL (8.5-10.3); CREATININE 0.8 mg/dL (0.4-1.0)
[2019-01-01] MEDS: LISINOPRIL 5 MG TABLET PO SCH (08:51)
[2019-01-01] MEDS: MEGESTROL 400 MG/10 ML UDC PO SCH (08:51)
[2019-01-01] MEDS: CARVEDILOL 3.125 MG TABLET PO SCH ×2 (08:52→21:13)
[2019-01-01] MEDS: ASPIRIN EC 81 MG TABLET PO SCH (08:52)
[2019-01-01] MEDS: FAMOTIDINE 20 MG TABLET PO SCH (08:52)
[2019-01-01] MEDS: SPIRONOLACTONE 25 MG TABLET PO SCH ×2 (08:52→21:13)
[2019-01-01] MEDS: MULTIVITAMIN TABLET PO SCH (08:53)
[2019-01-01] MEDS: NICOTINE 14 MG PATCH TOP SCH (08:53)
[2019-01-01] MEDS: FUROSEMIDE 40 MG TABLET PO SCH (08:53)
[2019-01-01] MEDS: POLYETHYLENE GLYCOL 3350 17 GM PACKET PO SCH ×2 (08:58→09:00)
[2019-01-01] MEDS ORDERED: SILDENAFIL CITRATE 20 MG TABLET PO SCH (11:00)
--- NOTE | 2019-01-01 15:39 | PROVIDER PROGRESS NOTE ---
Subjective - Prog Note Date Prog Note Date: 01/01/19 Prog Note Time: 15:39 - Subjective Pt reports feeling: No change (Patient very withdrawn, appears very despondent. Is unwilling to engage in conversation, when asked if unable to go to group home whom we could call to be of support for her, she reports "I have to do it by myself". Patient sitting upright leaning over with respiratory effort and frequent coughing. Revisited question if patient has oxygen in the home, reports "I do not need oxygen". Asked if I could call her son in [place], she is unable to identify where her other son lives. She has not told him she is in the hospital, nor that she needs help. She declined for me to contact him.) Current Medications - Current Medications Current Medications: Active Medications Acetaminophen (Tylenol) 650 mg PO Q4HR PRN PRN Reason: Pain 1 to 4 Aspirin (Ecotrin) 81 mg PO DAILY [facility] Last Admin: 01/01/19 08:52 Dose: 81 mg Budesonide (Pulmicort) 0.5 mg INH RTBID [facility] Last Admin: 01/01/19 06:11 Dose: 0.5 mg Carvedilol (Coreg) 3.125 mg PO BID [facility] Last Admin: 01/01/19 08:52 Dose: 3.125 mg Famotidine (Pepcid) 20 mg PO DAILY [facility] Last Admin: 01/01/19 08:52 Dose: 20 mg Furosemide (Lasix) 40 mg PO DAILY [facility] Last Admin: 01/01/19 08:53 Dose: 40 mg Levalbuterol HCl (Xopenex) 1.25 mg INH Q4H PRN PRN Reason: Shortness of Air/Wheezing Last Admin: 01/01/19 13:41 Dose: 1.25 mg Lisinopril (Zestril) 2.5 mg PO DAILY [facility] Last Admin: 01/01/19 08:51 Dose: 2.5 mg Megestrol Acetate (Megace) 400 mg PO DAILY [facility] Last Admin: 01/01/19 08:51 Dose: 400 mg Mirtazapine (Remeron) 7.5 mg PO QPM [facility] Last Admin: 12/31/18 20:13 Dose: 7.5 mg Montelukast Sodium (Singulair) 10 mg PO QPM [facility] Last Admin: 12/31/18 20:13 Dose: 10 mg Morphine Sulfate (Morphine (Carpuject)) 2 mg IVP Q2HR PRN PRN Reason: Dyspnea Last Admin: 12/31/18 18:59 Dose: 2 mg Multi-Ingred Cream/Lotion/Oil/Oint (Lubrifresh Pm Ophth Oint) 0 applic EACHEYE QPM PRN PRN Reason: Dry Eye Last Admin: 01/01/19 01:32 Dose: 1 applic Multivitamins (Theragran) 1 tab PO DAILY [facility] Last Admin: 01/01/19 08:53 Dose: 1 tab Nicotine (Nicoderm) 1 patch TOP DAILY [facility] Last Admin: 01/01/19 08:53 Dose: 1 patch Polyethylene Glycol (Miralax) 17 gm PO DAILY [facility] Last Admin: 01/01/19 09:00 Dose: 17 gm Prochlorperazine Edisylate (Compazine Inj) 10 mg IVP Q6HR PRN PRN Reason: Nausea / Vomiting Last Admin: 12/30/18 13:28 Dose: 10 mg Sildenafil Citrate (Sildenafil) 20 mg PO DAILY [facility] Last Admin: 01/01/19 13:34 Dose: 20 mg Sodium Chloride (Normal Saline Flush 0.9%) 10 ml IVP PRN PRN PRN Reason: NEEDED PER PROVIDER ORDERS Last Admin: 12/31/18 16:01 Dose: 10 ml Sodium Chloride (Normal Saline Flush 0.9%) 10 ml IVP 0100,0900,1700 [facility] Last Admin: 01/01/19 08:53 Dose: 10 ml Spironolactone (Aldactone) 12.5 mg PO BID [facility] Last Admin: 01/01/19 08:52 Dose: 12.5 mg Calcium Carbonate [Tums (Calcium Carbonate 500mg)] 500 mg PO BID 08/02/17 Multivitamin [Multivitamins] 1 each PO DAILY 08/02/17 Spironolactone 25 mg PO DAILY 12/29/18 Objective - Vital Signs/Intake & Output Reviewed Vital Signs: Yes Vital Signs: Vital Signs x48h Temp Pulse Pulse Resp BP Pulse Ox 01/01/19 13:43 72 24 01/01/19 08:00 36.6 C 93 16 146/92 H 99 Intake & Output: Intake & Output 12/29/18 12/30/18 12/31/1807/19 23:59 23:59 23:59 23:59 Intake Total 640 4545 691 2435 Output Total 450 2250 Balance 190 -1894 218 9993 - Objective General Appearance: positive: No acute distress, Alert, Other (Chronically ill- appearing, cachectic, Withdrawn and does not engage) Eyes Bilateral: positive: Normal inspection, PERRL, EOMI Neck: positive: Nml inspection, Thyroid nml, No JVD, Trachea midline, Thyromegaly. negative: Carotid bruit Respiratory: positive: Chest non-tender, No respiratory distress, Rhonchi. negative: Wheezes, Rales Cardiovascular: positive: Regular rate & rhythm, PMI displaced laterally, Systolic murmur, Diastolic murmur. negative: Gallop/S4, Friction rub Peripheral Pulses: 2+ Dorsalis pedis (R), 2+ Dorsalis pedis (L) Abdomen: positive: Non-tender, No organomegaly, Nml bowel sounds. negative: No distention, Tenderness, Hepatomegaly, Splenomegaly, Abnml bowel sounds Skin: positive: Color nml, No rash, Warm Neurologic/Psychiatric: positive: Oriented x3, Weakness, Depressed mood/affect Babinski Reflex: Right: Absent, Left: Absent - Lab Results Fish Bones: 01/01/19 07:05 01/01/19 07:05 Other Labs: Lab Results x24hrs 01/01/19 01/01/19 01/01/19 Range/Units 07:05 07:05 07:05 WBC 8.1 (4.8-10.8) x10^3/uL RBC 4.26 (4.20-5.40) 10^6/uL Hgb 14.6 (12.0-16.0) g/dL Hct 44.0 (37.0-47.0) % MCV 103.3 H (81.0-99.0) fL MCH 34.3 H (27.0-31.0) pg MCHC 33.2 (32.0-36.0) g/dL RDW 16.0 H (12.0-15.0) % Plt Count 97 L (130-450) 10^3/uL MPV 8.5 (7.9-10.8) fL Neut # (Auto) 5.3 (1.5-6.6) 10^3/uL Lymph # (Auto) 1.9 (1.5-3.5) 10^3/uL [place] # (Auto) 0.8 (0.0-1.0) 10^3/uL Eos # (Auto) 0.0 (0.0-0.7) 10^3/uL Baso # (Auto) 0.1 (0.0-0.1) 10^3/uL Absolute Nucleated RBC 0.01 x10^3/uL Nucleated RBC % 0.1 /100WBC Sodium 143 (135-145) mmol/L Potassium 4.2 (3.5-5.0) mmol/L Chloride 106 (101-111) mmol/L Carbon Dioxide 28 (21-32) mmol/L Anion Gap 9.0 (6-13) BUN 34 H (6-20) mg/dL Creatinine 0.8 (0.4-1.0) mg/dL Estimated GFR (MDRD) 71 L (>89) Glucose 117 H (70-100) mg/dL Calcium 8.8 (8.5-10.3) mg/dL B-Natriuretic Peptide 1265 H (5-100) pg/mL ABX Reporting Has patient been on IV antibiotics over the past 48 hours?: No Assessment/Plan - Problem List (1) Systolic and diastolic CHF w/reduced LV function, NYHA class 4 Impression: Continue with current medical management, guideline directed medical therapy, 1200 mL free water restriction to continue, good diuresis noted. (2) Acute on chronic respiratory failure with hypoxia and hypercapnia Impression: Continue with current oxygenation, currently at 98% O2 saturation on 2 L nasal cannula. Addressing underlying etiologies with medical management. (3) Severe pulmonary arterial systolic hypertension Impression: We will hopefully start revatio 20 mg p.o. daily and anticipate titration upward to TID. (4) COPD (chronic obstructive pulmonary disease) with emphysema Impression: Continue to maximize respiratory function and current medical management. Qualifiers: Emphysema type: unspecified Qualified Code(s): J43.9 - Emphysema, unspecified (5) Pulmonary fibrosis Impression: Continue with current medical management. (6) Thrombocytopenia Impression: Stable with no coagulopathy or bleeding events. Lovenox has been discontinued. Patient still has DVT risk and SCD boots have been applied. (7) Raynauds phenomenon Impression: Patient with calcium channel blockade will benefit from vasodilator tx with REVATIO. Qualifiers: Raynaud?s-associated gangrene presence: without gangrene Qualified Code(s): I73.00 - Raynaud's syndrome without gangrene (8) Tobacco dependence Impression: Continue with nicotine patch. (9) Failure to thrive in adult Impression: Optimize medical management as well as nutritional management on Megace and Remeron. (10) Cachexia Impression: Will optimize nutritional management and address underlying etiologies contributing to patient's weight loss and malnutrition per (11) Protein-calorie malnutrition, moderate Impression: Continue to optimize nutritional intake and caloric need as well as address underlying medical conditions. (12) Palliative care status Impression: Per palliative care services: Patient very withdrawn, appears very despondent. Is unwilling to engage in conversation, when asked if unable to go to group home whom we could call to be of support for her, she reports "I have to do it by myself". Patient sitting upright leaning over with respiratory effort and frequent coughing. Revisited question if patient has oxygen in the home, reports "I do not need oxygen". Asked if I could call her son in [place], she is unable to identify where her other son lives. She has not told him she is in the hospital, nor that she needs help. She declined for me to contact him. Did encourage her to engage with social services director to help find assistance. Would strongly recommend home health nursing and social work to follow her if she is not transitioned to the group home, awaiting PT evaluation for baseline functional status and support for NH rehab stay. Patient has physical d econditioned status and will require physical therapy for rehab potential.
[2019-01-01] MEDS: MORPHINE 2 MG/ML CARPUJECT IVP PRN ×2 (16:13→21:12)
[2019-01-01] MEDS: MIRTAZAPINE 15 MG TABLET PO SCH (21:12)
[2019-01-01] MEDS: MONTELUKAST 10 MG TABLET PO SCH (21:13)
[2019-01-02] MEDS: SODIUM CHLORIDE FLUSH 0.9% 10 ML SYRINGE IVP SCH ×3 (00:16→22:09)
[2019-01-02] MEDS: ACETAMINOPHEN 325 MG TABLET PO PRN (06:23)
[2019-01-02] MEDS ORDERED: SPIRONOLACTONE 25 MG TABLET PO SCH (09:00)
[2019-01-02] MEDS: LEVALBUTEROL 1.25 MG/3 ML NEB INH PRN (09:01)
[2019-01-02] MEDS: BUDESONIDE 0.5 MG/2 ML NEB INH SCH ×2 (09:01→22:37)
[2019-01-02] MEDS: LISINOPRIL 5 MG TABLET PO SCH (10:39)
[2019-01-02] MEDS: MULTIVITAMIN TABLET PO SCH (10:39)
[2019-01-02] MEDS: SILDENAFIL CITRATE 20 MG TABLET PO SCH ×2 (10:40→22:08)
[2019-01-02] MEDS: FAMOTIDINE 20 MG TABLET PO SCH (10:41)
[2019-01-02] MEDS: ASPIRIN EC 81 MG TABLET PO SCH (10:41)
[2019-01-02] MEDS: CARVEDILOL 3.125 MG TABLET PO SCH ×2 (10:41→20:29)
[2019-01-02] MEDS: POLYETHYLENE GLYCOL 3350 17 GM PACKET PO SCH (10:41)
[2019-01-02] MEDS: FUROSEMIDE 40 MG TABLET PO SCH (10:42)
[2019-01-02] MEDS: MEGESTROL 400 MG/10 ML UDC PO SCH (10:42)
[2019-01-02] MEDS: NICOTINE 14 MG PATCH TOP SCH (10:43)
--- NOTE | 2019-01-02 17:50 | MISCELLANEOUS PROVIDER NOTE ---
Miscellaneous Provider Note - - Note: Subjective: Patient does not complain of any particular symptoms today. Shortness of breath has improved. Patient is somewhat dismissive and does not engage providers. Objective: Vital signs hemostatically stable. Afebrile, heart rate of 86, blood pressure 138/92, RR 16, 95% O2 saturation on 4 L nasal cannula General: Patient is chronically ill-appearing, cachectic and thin, generalized weakness HEENT: Pupils equal round dry reactive to light and accommodation/EOMI. No buccal lesions. NCAT next Neck: No JVD no bruits no lymphadenopathy CV/lungs: RRR. Decreased breath sounds to the lower bases along with fine scattered rales left more than right. No increased work of breath no retractions no wheezing. Abdomen: No ascites, positive bowel sounds all quadrants, no HSM. Extremities/skin: No edema there is stable cyanosis to bilateral digits with blue to purplish discoloration of digits with 2+ pulses radial bilateral. Denuded skin to the fingertips of bilateral digits. 2+ pulses dorsalis pedis with mild pedal edema to the left versus the right. Neuro: Grossly intact Labs: Reviewed imaging studies: Reviewed Assessment/Plan: - Problem List (1) Systolic and diastolic CHF w/reduced LV function, NYHA class 4 Impression: Continue with current medical management, guideline directed medical therapy, 1200 mL free water restriction to continue, good diuresis noted. (2) Acute on chronic respiratory failure with hypoxia and hypercapnia Impression: Continue with current oxygenation, currently at 98% O2 saturation on 2 L nasal cannula. Addressing underlying etiologies with medical management. (3) Severe pulmonary arterial systolic hypertension Impression: We will hopefully start revatio 20 mg p.o. daily and anticipate titration upward to TID. (4) COPD (chronic obstructive pulmonary disease) with emphysema Impression: Continue to maximize respiratory function and current medical management. Qualifiers: Emphysema type: unspecified Qualified Code(s): J43.9 - Emphysema, unspecified (5) Pulmonary fibrosis Impression: Continue with current medical management. (6) Thrombocytopenia Impression: Stable with no coagulopathy or bleeding events. Lovenox has been discontinued. Patient still has DVT risk and SCD boots have been applied. (7) Raynauds phenomenon Impression: Patient with calcium channel blockade will benefit from vasodilator tx with REVATIO. Qualifiers: Raynaud?s-associated gangrene presence: without gangrene Qualified Code(s): I73.00 - Raynaud's syndrome without gangrene (8) Tobacco dependence Impression: Continue with nicotine patch. (9) Failure to thrive in adult Impression: Optimize medical management as well as nutritional management on Megace and Remeron. (10) Cachexia Impression: Will optimize nutritional management and address underlying etiologies contributing to patient's weight loss and malnutrition per (11) Protein-calorie malnutrition, moderate Impression: Continue to optimize nutritional intake and caloric need as well as address underlying medical conditions. (12) Palliative care status Impression: Per palliative care services: Patient very withdrawn, appears very despondent. Is unwilling to engage in conversation, when asked if unable to go to intermediate whom we could call to be of support for her, she reports "I have to do it by myself". Patient sitting upright leaning over with respiratory effort and frequent coughing. Revisited question if patient has oxygen in the home, reports "I do not need oxygen". Asked if I could call her son in [place], she is unable to identify where her other son lives. She has not told him she is in the hospital, nor that she needs help. She declined for me to contact him. Did encourage her to engage with social service liaison to help find assistance. Would strongly recommend home health nursing and social work to follow her if she is not transitioned to the intermediate, awaiting PT evaluation for baseline functional status and support for NH rehab stay. Patient has physical deconditioned status and will require physical therapy for rehab potential.
[2019-01-02] MEDS: MIRTAZAPINE 15 MG TABLET PO SCH (20:29)
[2019-01-02] MEDS: MONTELUKAST 10 MG TABLET PO SCH (20:29)
[2019-01-02] MEDS: MINERAL OIL/PETROLAT OPHTH OINT EACHEYE PRN (20:31)
[2019-01-02] MEDS: SPIRONOLACTONE 25 MG TABLET PO SCH (22:08)
[2019-01-03] MEDS: ACETAMINOPHEN 325 MG TABLET PO PRN (00:16)
[2019-01-03] MEDS: SODIUM CHLORIDE FLUSH 0.9% 10 ML SYRINGE IVP SCH ×3 (00:17→20:34)
[2019-01-03 06:45] LABS: BASOPHILS % (AUTO) 0.7 %; EOSINOPHILS # (AUTO) 0.2 10^3/uL (0.0-0.7); EOSINOPHILS % (AUTO) 3.2 %; HGB - HEMOGLOBIN 13.9 g/dL (12.0-16.0); LYMPHOCYTES # (AUTO) 1.6 10^3/uL (1.5-3.5); LYMPHOCYTES % (AUTO) 25.8 %; MEAN CORPUSCULAR HEMOGLOBIN 34.4 pg (27.0-31.0); MEAN CORPUSCULAR HGB CONC 33.3 g/dL (32.0-36.0); MEAN CORPUSCULAR VOLUME 103.2 fL (81.0-99.0); MEAN PLATELET VOLUME 8.5 fL (7.9-10.8); MONOCYTES # (AUTO) 0.5 10^3/uL (0.0-1.0); MONOCYTES % (AUTO) 7.8 %; NEUTROPHILS # (AUTO) 3.9 10^3/uL (1.5-6.6); NEUTROPHILS % (AUTO) 62.5 %; PLT - PLATELET COUNT 130 10^3/uL (130-450); RED BLOOD COUNT 4.04 10^6/uL (4.20-5.40); RED CELL DISTRIBUTION WIDTH 15.9 % (12.0-15.0); WHITE BLOOD COUNT 6.2 x10^3/uL (4.8-10.8)
[2019-01-03 06:58] LABS: ALBUMIN 3.3 g/dL (3.2-5.5); CALCIUM 8.1 mg/dL (8.5-10.3); CREATININE 0.5 mg/dL (0.4-1.0); PHOSPHORUS 2.9 mg/dL (2.5-4.6)
[2019-01-03] MEDS: BUDESONIDE 0.5 MG/2 ML NEB INH SCH ×2 (07:19→16:51)
[2019-01-03] MEDS: ASPIRIN EC 81 MG TABLET PO SCH (09:54)
[2019-01-03] MEDS: CARVEDILOL 3.125 MG TABLET PO SCH ×2 (09:57→20:34)
[2019-01-03] MEDS: FUROSEMIDE 40 MG TABLET PO SCH (09:58)
[2019-01-03] MEDS: MULTIVITAMIN TABLET PO SCH (09:58)
[2019-01-03] MEDS: FAMOTIDINE 20 MG TABLET PO SCH (10:01)
[2019-01-03] MEDS: SPIRONOLACTONE 25 MG TABLET PO SCH ×2 (10:02→20:24)
[2019-01-03] MEDS: SILDENAFIL CITRATE 20 MG TABLET PO SCH ×2 (10:03→20:24)
[2019-01-03] MEDS: LISINOPRIL 5 MG TABLET PO SCH (10:05)
[2019-01-03] MEDS: MEGESTROL 400 MG/10 ML UDC PO SCH (10:06)
[2019-01-03] MEDS: NICOTINE 14 MG PATCH TOP SCH (10:07)
[2019-01-03] MEDS: POLYETHYLENE GLYCOL 3350 17 GM PACKET PO SCH (10:08)
[2019-01-03] MEDS ORDERED: POTASSIUM CHLORIDE 20 MEQ TABLET PO ONE (13:39)
--- NOTE | 2019-01-03 13:52 | Discharge Plan ---
Discharge Plan Disposition: 01 Home, Self Care Condition: Good Prescriptions: Carvedilol [Coreg] 6.25 mg PO BID #60 tablet RX: Furosemide [Lasix] 40 mg PO DAILY #30 tablet RX: Ketorolac 0.45% Ophth Drops [Acuvail] 1 drops LEFTEYE TID #1 bottle RX: Lisinopril [Zestril] 2.5 mg PO DAILY #30 tablet RX: Sildenafil Citrate [Sildenafil] 20 mg PO TID #90 tablet RX: Spironolactone [Aldactone] 25 mg PO BID #60 tablet Diet: Cardiac (1200 ml free water restriction/24 hr) Activity Restrictions: No Restrictions Shower Restrictions: No Driving Restrictions: No Weight Bearing: Full Weight Instruction Topics: Sildenafil tablets Revatio, Heart Failure Meds Control, Heart Failure, Heart Failure Diet Changes, Hypertension Pulmonary Additional Instructions or Follow Up instructions: Patient was instructed on her combined systolic diastolic heart failure with severe pulmonary artery hypertension along with right cor pulmonale with existing pulmonary fibrosis that is progressive and with chronic hypoxemic respiratory failure on home O2 dependence. Patient has been given instructions on the importance of taking REVATIO as well as guideline directed medical therapy to address heart failure. Patient needs to monitor fluid intake restriction and daily weights. Patient will need pulmonary close follow-up as well as cardiac rehab as outpatient. Patient instructed on medication adherence and compliance. Pt comfortable with plan and will return if he worsens. PLEASE REFER TO THE DISCHARGE MEDICATION LIST. Follow-Up Care: [facility], [facility] Classes No Smoking: If you smoke, Please STOP! Call for help. Follow-up with: Mari Wright MD [Primary Care Provider] - 1 Week
--- NOTE | 2019-01-03 14:01 | MISCELLANEOUS PROVIDER NOTE ---
Miscellaneous Provider Note - - Note: Subjective: Patient feels better however she still does not feel like she can go home feeling weak. Patient continues to be diuresed as she is complaining of lower extremity edema along with frequency in urination. Objective: Vital signs are hemodynamically stable. Afebrile, heart rate of 97, blood pressure 139/97, RR 18, 93% O2 saturation on 2 L nasal cannula General: Patient is chronically ill-appearing, cachectic and thin, malnourished, frail HEENT: NCAT, right conjunctival hyperemia with some tearing of bilateral eyes with no lesions, no lid edema. No buccal lesions Neck: No JVD no bruits no lymphadenopathy CV/lungs S1-S2 within normal limits, Systolic and diastolic murmurs are auscultated, displaced PMI, no gallops or clicks. Decreased breath sounds bibasilarly with no wheezing no increased work of breath. There is fine bilateral crackles still present although improved. Abdomen: Soft nontender nondistended positive bowel sounds all quads no HSM. No bruits. extremities/skin: Bilateral digits purple to bluish improved right versus left with 2+ pulses radial bilaterally. Cyanotic digits with poor pulse ox. Bilateral lower extremity edema noted. Neuro: Grossly intact. Labs: Reviewed next Imaging studies: Reviewed next Assessment/Plan: - Problem List (1) Systolic and diastolic CHF w/reduced LV function, NYHA class 4 Impression: Continue with current medical management, guideline directed medical therapy, 1200 mL free water restriction to continue, good diuresis noted. Patient still is not at baseline with her dyspnea on exertion with lower extremity edema which still needs further diureses as patient gets short of breath on ambulation although she is at 2 L nasal cannula at this point. Will have RN ambulate and document desaturations. Patient is at high risk for readmission for decompen sated CHF exacerbation. Patient will be instructed on medication compliance and adherence as well as daily weights strict I's and O's. Patient currently does not feel "well" to go home. We will continue to reinforce medication management at home and will need follow-up with cardiac rehab along with CHF classes which will will be recommended on discharge. (2) Acute on chronic respiratory failure with hypoxia and hypercapnia Impression: ambulates with hypoxemia while on 2L Continue with current oxygenation, currently at 98% O2 saturation on 2 L nasal cannula. Addressing underlying etiologies with medical management. Patient has been stable and at baseline and will continue with oxygenation once she is discharged. (3) Severe pulmonary arterial systolic hypertension Impression: Patient has been titrated to revatio 20 mg p.o. 3 times daily on discharge. (4) COPD (chronic obstructive pulmonary disease) with emphysema Impression: Continue to maximize respiratory function and current medical management. Qualifiers: Emphysema type: unspecified Qualified Code(s): J43.9 - Emphysema, unspecified (5) Pulmonary fibrosis Impression: Continue with current medical management. (6) Thrombocytopenia Impression: Stable with no coagulopathy or bleeding events. Lovenox has been discontinued. Patient still has DVT risk and SCD boots have been applied. (7) Raynauds phenomenon Impression: Patient with calcium channel blockade will benefit from vasodilator tx with REVATIO. Qualifiers: Raynaud's-associated gangrene presence: without gangrene Qualified Code(s): I73.00 - Raynaud's syndrome without gangrene (8) Tobacco dependence Impression: Continue with nicotine patch. (9) Failure to thrive in adult Impression: Optimize medical management as well as nutritional management on Megace and Remeron. (10) Cachexia Impression: Will optimize nutritional management and address underlying etiologies contributing to patient's weight loss and malnutrition per (11) Protein-calorie malnutrition, moderate Impression: Continue to optimize nutritional intake and caloric need as well as address underlying medical conditions. (12) Palliative care status Impression: Per palliative care services: Patient very withdrawn, appears very despondent. Is unwilling to engage in conversation, when asked if unable to go to intermediate whom we could call to be of support for her, she reports "I have to do it by myself". Patient sitting upright leaning over with respiratory effort and frequent coughing. Revisited question if patient has oxygen in the home, reports "I do not need oxygen". Asked if I could call her son in [place], she is unable to identify where her other son lives. She has not told him she is in the hospital, nor that she needs help. She declined for me to contact him. Did encourage her to engage with director of social services to help find assistance. Would strongly recommend home health nursing and social work to follow her if she is not transitioned to the intermediate, awaiting PT evaluation for baseline functional status and support for NH rehab stay. Patient has physical deconditioned status and will require physical therapy for rehab potential.
[2019-01-03] MEDS: KETOROLAC 0.45% OPHTH DROPS LEFTEYE SCH ×2 (14:37→21:04)
[2019-01-03] MEDS: MINERAL OIL/PETROLAT OPHTH OINT EACHEYE PRN (14:42)
[2019-01-03] MEDS: CARBOXYMETHYLCELLULOSE OPHTH DROPS EACHEYE SCH ×3 (15:02→20:34)
[2019-01-03] MEDS: MIRTAZAPINE 15 MG TABLET PO SCH (20:33)
[2019-01-03] MEDS: MONTELUKAST 10 MG TABLET PO SCH (20:36)
[2019-01-04] MEDS: SODIUM CHLORIDE FLUSH 0.9% 10 ML SYRINGE IVP SCH ×3 (00:27→21:39)
[2019-01-04] MEDS: CARBOXYMETHYLCELLULOSE OPHTH DROPS EACHEYE SCH ×6 (00:27→21:35)
[2019-01-04] MEDS ORDERED: KETOROLAC 0.45% OPHTH DROPS ONE (06:36)
[2019-01-04] MEDS: KETOROLAC 0.45% OPHTH DROPS LEFTEYE SCH ×3 (06:37→22:03)
[2019-01-04 07:06] LABS: ALBUMIN 3.5 g/dL (3.2-5.5); CALCIUM 8.1 mg/dL (8.5-10.3); CREATININE 0.6 mg/dL (0.4-1.0); PHOSPHORUS 2.8 mg/dL (2.5-4.6)
[2019-01-04] MEDS: BUDESONIDE 0.5 MG/2 ML NEB INH SCH ×2 (07:29→16:46)
[2019-01-04 07:34] LABS: BASOPHILS % (AUTO) 0.7 %; EOSINOPHILS # (AUTO) 0.1 10^3/uL (0.0-0.7); EOSINOPHILS % (AUTO) 2.2 %; LYMPHOCYTES # (AUTO) 1.8 10^3/uL (1.5-3.5); LYMPHOCYTES % (AUTO) 32.1 %; MEAN CORPUSCULAR HEMOGLOBIN 34.5 pg (27.0-31.0); MEAN CORPUSCULAR HGB CONC 33.6 g/dL (32.0-36.0); MEAN CORPUSCULAR VOLUME 102.8 fL (81.0-99.0); MEAN PLATELET VOLUME 8.9 fL (7.9-10.8); MONOCYTES # (AUTO) 0.5 10^3/uL (0.0-1.0); MONOCYTES % (AUTO) 8.7 %; NEUTROPHILS # (AUTO) 3.1 10^3/uL (1.5-6.6); NEUTROPHILS % (AUTO) 56.3 %; PLT - PLATELET COUNT 127 10^3/uL (130-450); RED BLOOD COUNT 4.06 10^6/uL (4.20-5.40); RED CELL DISTRIBUTION WIDTH 16.4 % (12.0-15.0); WHITE BLOOD COUNT 5.5 x10^3/uL (4.8-10.8)
[2019-01-04] MEDS ORDERED: BENZONATATE 100 MG CAPSULE PO PRN (10:29)
[2019-01-04] MEDS: MEGESTROL 400 MG/10 ML UDC PO SCH (10:47)
[2019-01-04] MEDS: MULTIVITAMIN TABLET PO SCH (10:49)
[2019-01-04] MEDS: ASPIRIN EC 81 MG TABLET PO SCH (10:49)
[2019-01-04] MEDS: FAMOTIDINE 20 MG TABLET PO SCH (10:49)
[2019-01-04] MEDS: CARVEDILOL 3.125 MG TABLET PO SCH ×2 (10:50→21:34)
[2019-01-04] MEDS: SILDENAFIL CITRATE 20 MG TABLET PO SCH ×2 (10:50→21:34)
[2019-01-04] MEDS: FUROSEMIDE 40 MG TABLET PO SCH (10:51)
[2019-01-04] MEDS: SPIRONOLACTONE 25 MG TABLET PO SCH ×2 (10:51→21:34)
[2019-01-04] MEDS: LISINOPRIL 5 MG TABLET PO SCH (10:51)
[2019-01-04] MEDS: MINERAL OIL/PETROLAT OPHTH OINT EACHEYE PRN (10:53)
[2019-01-04] MEDS: NICOTINE 14 MG PATCH TOP SCH (10:54)
[2019-01-04] MEDS: POLYETHYLENE GLYCOL 3350 17 GM PACKET PO SCH (10:56)
--- NOTE | 2019-01-04 12:06 | XRAY Report ---
Reason: Pneumonia Procedure Date: 01/04/2019 Accession Number: [id number] / [id number] Procedure: XR - Chest 1 View X-Ray CPT Code: 61002 FULL RESULT: EXAM: CHEST RADIOGRAPHY EXAM DATE: 01/04/2019 10:45 AM. CLINICAL HISTORY: Pneumonia. COMPARISON: CHEST 1 VIEW 12/29/2018 5:20 PM. TECHNIQUE: 1 view. FINDINGS: Lungs/Pleura: Persistent increased interstitial markings seen at the right base, with small right effusion. Previously described nodularity in the left midlung is not well appreciated on current exam. Mediastinum: Stable cardiomegaly. Other: None. IMPRESSION: Stable increased interstitial marking seen at the right base with small effusion. RADIA
--- NOTE | 2019-01-04 19:04 | MISCELLANEOUS PROVIDER NOTE ---
Miscellaneous Provider Note - - Note: Subjective: Patient feeling much better able to ambulate and had questions about her medical treatment when she goes home. Patient had desaturations down to 61% and correctly improved on 4 L this is after ambulation. Patient gets short of breath and fatigue very easily. Patient is actively coughing. No fevers no chills. Objective: Vital signs are hemodynamically stable. Afebrile, blood pressure 124/91 having hypotensive events. Respiratory rate ranging from 60-24 on 2 L nasal cannula nisin 200% O2 saturation. General: Patient is chronically ill-appearing, cachectic and thin, malnourished, frail, Patient is actively coughing. HEENT: NCAT, right conjunctival hyperemia with some tearing of bilateral eyes with no lesions, no lid edema. No buccal lesions Neck: No JVD no bruits no lymphadenopathy CV/lungs S1-S2 within normal limits, Systolic and diastolic murmurs are auscultated, displaced PMI, no gallops or clicks. Decreased breath sounds bibasilarly with no wheezing no increased work of breath. There is fine bilateral crackles still present although improved. Abdomen: Soft nontender nondistended positive bowel sounds all quads no HSM. No bruits. extremities/skin: Bilateral digits purple to bluish improved right versus left with 2+ pulses radial bilaterally. Cyanotic digits with poor pulse ox. Bilateral lower extremity edema noted. Neuro: Grossly intact. Labs: Reviewed next Imaging studies: Reviewed. Chest x-ray on 01/04/19 shows stable increased interstitial markings on the right With basal pleural effusions Assessment/Plan: - Problem List (1) Systolic and diastolic CHF w/reduced LV function, NYHA class 4 Impression: Continue with current medical management, guideline directed medical therapy, BNP has improved to 799. 1200 mL free water restriction to continue, good diuresis noted. Patient still is not at baseline with her dyspnea on exertion with lower extremity edema which still needs further diureses as patient gets short of breath on ambulation although she is at 2 L nasal cannula at this point. Unfortunately patient does desaturate with ambulation and likely requires a little bit more therapies with a chest x-ray showing some pulmonary vascular congestion does not appear to be pneumonia. Patient is at high risk for readmission for decompensated CHF exacerbation. Patient will be instructed on medication compliance and adherence as well as daily weights strict I's and O's. We will continue to reinforce medication management at home and will need follow-up with cardiac rehab along with CHF classes which will will be recommended on discharge. (2) Acute on chronic respiratory failure with hypoxia and hypercapnia Impression: ambulates with hypoxemia while on 2L Continue with current oxygenation, currently at 98% O2 saturation on 2 L nasal cannula. Addressing underlying etiologies with medical management. Patient has been stable and at baseline and will continue with oxygenation once she is discharged. (3) Severe pulmonary arterial systolic hypertension Impression: Patient has been titrated to revatio 20 mg p.o. 3 times daily on discharge. (4) COPD (chronic obstructive pulmonary disease) with emphysema Impression: Continue to maximize respiratory function and current medical management. (5) Pulmonary fibrosis Impression: Continue with current medical management. (6) Thrombocytopenia Impression: Stable with no coagulopathy or bleeding events. Lovenox has been discontinued. Patient still has DVT risk and SCD boots have been applied. (7) Raynauds phenomenon Impression: Patient with calcium channel blockade will benefit from vasodilator tx with REVATIO. (8) Tobacco dependence Impression: Continue with nicotine patch. (9) Failure to thrive in adult Impression: Optimize medical management as well as nutritional management on Megace and Remeron. (10) Cachexia Impression: Will optimize nutritional management and address underlying etiologies contributing to patient's weight loss and malnutrition per (11) Protein-calorie malnutrition, moderate Impression: Continue to optimize nutritional intake and caloric need as well as address underlying medical conditions. (12) Palliative care status Impression: Continue with palliative care and addressing goals of care along with disease management symptom management and trajectory of illness.
[2019-01-04] MEDS: MIRTAZAPINE 15 MG TABLET PO SCH (21:34)
[2019-01-04] MEDS: MONTELUKAST 10 MG TABLET PO SCH (21:34)
[2019-01-05] MEDS: SODIUM CHLORIDE FLUSH 0.9% 10 ML SYRINGE IVP SCH ×2 (01:48→08:33)
[2019-01-05] MEDS: CARBOXYMETHYLCELLULOSE OPHTH DROPS EACHEYE SCH ×3 (01:48→08:29)
[2019-01-05] MEDS: KETOROLAC 0.45% OPHTH DROPS LEFTEYE SCH (05:46)
[2019-01-05 05:47] LABS: BASOPHILS % (AUTO) 0.9 %; EOSINOPHILS # (AUTO) 0.1 10^3/uL (0.0-0.7); EOSINOPHILS % (AUTO) 2.3 %; HGB - HEMOGLOBIN 14.5 g/dL (12.0-16.0); LYMPHOCYTES # (AUTO) 1.8 10^3/uL (1.5-3.5); LYMPHOCYTES % (AUTO) 31.6 %; MEAN CORPUSCULAR HEMOGLOBIN 34.4 pg (27.0-31.0); MEAN CORPUSCULAR HGB CONC 33.2 g/dL (32.0-36.0); MEAN CORPUSCULAR VOLUME 103.5 fL (81.0-99.0); MEAN PLATELET VOLUME 8.2 fL (7.9-10.8); MONOCYTES # (AUTO) 0.5 10^3/uL (0.0-1.0); MONOCYTES % (AUTO) 9.8 %; NEUTROPHILS # (AUTO) 3.1 10^3/uL (1.5-6.6); NEUTROPHILS % (AUTO) 55.4 %; PLT - PLATELET COUNT 125 10^3/uL (130-450); RED BLOOD COUNT 4.22 10^6/uL (4.20-5.40); WHITE BLOOD COUNT 5.5 x10^3/uL (4.8-10.8)
[2019-01-05 06:04] LABS: ALBUMIN 3.3 g/dL (3.2-5.5); CALCIUM 8.1 mg/dL (8.5-10.3); CREATININE 0.6 mg/dL (0.4-1.0); PHOSPHORUS 2.7 mg/dL (2.5-4.6)
--- NOTE | 2019-01-05 06:26 | DISCHARGE SUMMARY ---
"Discharge Summary Admit Date: 12/29/18 Discharge Date: 01/05/19 Discharging Provider: Dr. Kellogg Primary Care Provider: Carrie Wright Code Status: Do Not Attempt Resuscitation Condition at Discharge: Good Discharge Disposition: 01 Home, Self Care - DIAGNOSES Admission Diagnoses: 1. Suspected systolic congestive heart failure by virtue of elevated BNP 2. Chronic obstructive pulmonary disease with exacerbation home O2 dependence 3. Sinus tachycardia 4. Hypertension 5. Subclinical hyperthyroidism with elevated free T3 and normal TSH 6. Pulmonary fibrosis 7. Tobacco abuse 8. Macrocytosis without anemia 9. Raynaud's phenomenon expressed 10. Abnormal EKG consistent with cor pulmonale Discharge Diagnoses with Status of Each Condition: (1) Systolic and diastolic CHF w/reduced LV function, NYHA class 4; Stable; Cl ass C stage 4 HF. (2) Acute on chronic respiratory failure with hypoxia and hypercapnia; Home O2 dependence with 2 L nasal cannula, stable (3) Severe pulmonary arterial systolic hypertension: Stable (4) COPD (chronic obstructive pulmonary disease) with emphysema: On baseline 2 L nasal cannula stable (6) Thrombocytopenia: Improved (5) Pulmonary fibrosis: Chronic and progressive (7) Raynauds phenomenon: Improved (8) Tobacco dependence: Chronic (9) Failure to thrive in adult: Improved (10) Cachexia: Stable (11) Protein-calorie malnutrition, moderate: Improved (12) Palliative care status - HPI History of Present Illness: This is a 68-year-old female who has a history of pulmonary fibrosis, pulmonary hypertension, possible ray nods disease of her fingers, hyperthyroidism recently diagnosed poor appetite and weight loss who presents with worsening shortness of breath and new leg edema. The patient's history started 2 years ago when she developed shortness of breath and was sent for workup to a wood car builder. Review of old records shows that she underwent a right heart catheterization was found to have pulmonary fibrosis and pulmonary hypertension. She also went to see a certified indoor environmentalist and did have a pulmonary function test done but does not know the results. She was started on home oxygen and Spiriva inhaler. She states that no one of these treatments improved her shortness of breath and gave her nasal dryness and epistaxis. She had to see an ENT for cautery of nosebleeds. She also developed new discoloration of all her fingers as well as cold and painful sloughing off of the tips of her fingers and pain in one specific fingertip. She was sent to a automation specialist. She was first given a cream for this, and then was told there was an infection and she was on oral antibiotics for a while. 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 Patient had recently underwent blood testing that showed her to be hyperthyroid with Slightly elevated high T3 level and was sent to the thread grinder. She reports she was scheduled to undergo what sounds like radionuclide ablation of the thyroid and this was scheduled, but then later got a phone call and she was told that she did not have hyperthyroidism and the treatment was canceled. She has never been on medication for tachycardia and denies any other feelings such as anxiety or diarrhea, cold intolerance, or markedly in the unintentional weight loss. She does get constant itching of her scalp. Patient had blood test a week ago she was found to have very high BNP and she was started on Lasix which she took for 5 days. This did not help with any of her shortness of breath and minimally helped in new leg edema that was developing over the past few weeks. She was switched then to take Spironolactone 25 mg p.o. daily and the Lasix was stopped. As this led to more weight gain instead of fluid loss and weight loss. She went to her doctor on the day of admission to follow-up and was found to have hypertension with blood pressure of 168/110, tachycardia with a resting heart rate of [address] Wright Called patient for direct admission for CHF COPD exacerbation and underlying pulmonary fibrosis with possible hyperthyroidism management. - CONSULTS | PROCEDURES Procedures: Echocardiogram shows severe pulmonary artery hypertension with severe pulmonary regurgitation/tricuspid regurgitation with an ejection fraction of 25-30% combined systolic/diastolic heart failure with hypokinesis and global involvement of chambers. - HOSPITAL COURSE Hospital Course: Ms. Sal Zee was admitted for progressive shortness of breath with a m ultifactorial etiology secondary to a combined systolic and diastolic heart failure which was seen to have an ejection fraction of 25-30% on her echocardiogram which shows slightly worsening severe pulmonary artery hypertension with approximately 73 mmHg RVSP, severe [place]/TR. This was markedly decreased from an echocardiogram dated 2016 that showed essentially a preserved ejection fraction. Patient did have serial ABG showing hypercapnia along with desaturations on exertion while hospitalized. Patient initially started on Revatio At a low dose and was titrated to 20 mg p.o. 3 times daily. Patient in addition had been placed on guideline directed medical therapy with Coreg uptitrated for BP tolerance along with Lasix and Aldactone. Patient was also placed on a low dose ANTONY inhibitor of 2.5 mg p.o. daily to be continued as an outpatient. Patient Initially had a markedly elevated BNP to correspond to her combined systolic and diastolic heart failure which subsequently improved tremendously after good diuresis and urine output well above 5 L throughout hospitalization. Patient continued with guideline directed medical therapy, BNP has improved to 799. 1200 mL free water restriction to continue, good diuresis noted. Patient developed thrombocytopenia that did not show coagulopathy or bleeding events Lovenox was subsequently discontinued. Patient was not placed on calcium channel blockers due to possible precipitous drops while being on Revatio. Patient displayed failure to thrive with anorexia and cachexia was seen by dietitian and was started on supplementations to optimize nutritional management. She was also started on Megace and Remeron to increase caloric intake. Patient was instructed on smoking cessation and how this directly pertains to her overall condition concerning her lungs pulmonary fibrosis as well as cardiovascular comorbidities. Nicotine patch was continued throughout hospitalization. Patient had improvement to overall Symptoms pertaining to pulmonary fibrosis COPD and new diagnosis of systolic combined diastolic dysfunction CHF. Patient will be instructed on medication compliance and adherence as well as daily weights strict I's and O's. We will continue to reinforce medication management at home and will need follow-up with cardiac rehab along with CHF classes which will will be recommended on discharge. Patient will continue on Spiriva as well as home oxygen with concentrator, trim line worker to address health literacy and improve medication compliance.Patient would need to follow-up with endocrinology to see if her ray nods phenomena is related to possible underlying autoimmune disorders (i.e. Scleroderma, CREST). Patient to follow-up with PCP in 1-2 weeks. Patient likely will need a cardiology referral for her Systolic and diastolic CHF w/reduced LV function, NYHA class 4; Stable; AHA/ACC Class C stage 4 HF. from PCP if 3-month management fails to improve a reduced ejection fraction. - ALLERGIES Allergies/Adverse Reactions: Allergies Allergy/AdvReac Type Severity Reaction Status Date / Time No Known Drug Allergies Allergy Verified 04/06/18 15:16 - MEDICATIONS Home Medications: Ambulatory Orders Medication Instructions Recorded Confirmed RX: Calcium Carbonate [Tums 500 mg PO BID 08/02/17 12/30/18 (Calcium Carbonate 500mg)] RX: Multivitamin [Multivitamins] 1 each PO DAILY 08/02/17 12/30/18 Carvedilol [Coreg] 6.25 mg PO BID #60 tablet 01/03/19 RX: Furosemide [Lasix] 40 mg PO DAILY #30 tablet 01/03/19 RX: Ketorolac 0.45% Ophth Drops 1 drops LEFTEYE TID #1 bottle 01/03/19 [Acuvail] RX: Lisinopril [Zestril] 2.5 mg PO DAILY #30 tablet 01/03/19 RX: Sildenafil Citrate [Sildenafil] 20 mg PO TID #90 tablet 01/03/19 RX: Spironolactone [Aldactone] 25 mg PO BID #60 tablet 01/03/19 - PHYSICAL EXAM AT DISCHARGE General Appearance: positive: No acute distress, Alert, Anxious, Other (Cachectic thin and frail) Eyes Bilateral: positive: Normal inspection, PERRL, EOMI ENT: positive: ENT inspection nml, Pharynx nml, No signs of dehydration Neck: positive: Nml inspection, Thyroid nml, No JVD, Trachea midline. negative: Thyromegaly Respiratory: positive: Chest non-tender, No respiratory distress, Breath sounds nml Cardiovascular: positive: Regular rate & rhythm, No gallop, PMI displaced laterally, Systolic murmur, Diastolic murmur. negative: JVD present, Friction rub Peripheral Pulses: positive: 2+ Abdomen: positive: Non-tender, No organomegaly, Nml bowel sounds, No distention. negative: Tenderness Skin: positive: Cyanosis (Mild. Left more than right Bilateral hands), Other (Left digits appear bluish purple at the distal tips with improved perfusion. There is improved color to right hand with distal digits with mild cyanosis per) Extremities: positive: Non-tender, Full ROM, Nml appearance, Pedal edema Neurologic/Psychiatric: positive: Oriented x3, CN's nml (2-12) - LABS Result Diagrams: 01/05/19 05:39 01/05/19 05:39 - DIAGNOSTIC IMAGING Diagnostic Imaging Results: Final report reviewed (Chest x-ray on 3/10 shows stable increased interstitial markings at the right base with small effusions) - QUALITY (Female Hip Fx Only) Was patient sent home on osteoporosis medication?: No (Patient did not meet criteria) - FOLLOW UP Follow Up: Patient has been instructed to follow-up with Mari Barcenas in 1-2 weeks. Also instructed to keep all appointments take all oral medications as prescribed daily weights and ins and outs to measure for any increased weight gain. Patient is instructed to quit smoking and decrease his salt intake and soy sauce as this would exacerbate patient's combined diastolic and systolic dysfunction CHF. Patient will need to be referred over to a primary wood car builder in order to evaluate for possible MICROBIOLOGY TEACHER therapy versus ICD therapy if patient fails medical management in approximately 3 months time. - TIME SPENT Time Spent in Discharge (Minutes): 35"
[2019-01-05] MEDS: MEGESTROL 400 MG/10 ML UDC PO SCH (08:26)
[2019-01-05] MEDS: MINERAL OIL/PETROLAT OPHTH OINT EACHEYE PRN (08:29)
[2019-01-05] MEDS: FAMOTIDINE 20 MG TABLET PO SCH (08:30)
[2019-01-05] MEDS: CARVEDILOL 3.125 MG TABLET PO SCH (08:30)
[2019-01-05] MEDS: FUROSEMIDE 40 MG TABLET PO SCH (08:30)
[2019-01-05] MEDS: SPIRONOLACTONE 25 MG TABLET PO SCH (08:30)
[2019-01-05] MEDS: SILDENAFIL CITRATE 20 MG TABLET PO SCH (08:31)
[2019-01-05] MEDS: LISINOPRIL 5 MG TABLET PO SCH (08:31)
[2019-01-05] MEDS: MULTIVITAMIN TABLET PO SCH (08:31)
[2019-01-05] MEDS: NICOTINE 14 MG PATCH TOP SCH (08:33)
[2019-01-05] MEDS: POLYETHYLENE GLYCOL 3350 17 GM PACKET PO SCH (08:36)
[2019-01-05] MEDS: ASPIRIN EC 81 MG TABLET PO SCH (08:36)
[2019-01-05] MEDS: LEVALBUTEROL 1.25 MG/3 ML NEB INH PRN (10:11)
[2019-01-05] MEDS: BUDESONIDE 0.5 MG/2 ML NEB INH SCH (10:12)
[2019-01-05 13:01] VITALS: BP 82/57
== END 2019-01-05 13:15 | disposition home or self-care (01) | DRG 291 ==
LOC: MS2 16:50 → UNDOADMIN 16:50 → MS2 17:07
PROVIDERS: ADMIT Internal Medicine; ATTEND Family Medicine
DX: I11.0 Hypertensive heart disease with heart failure (principal); J96.22 Acute and chronic respiratory failure with hypercapnia; J96.21 Acute and chronic respiratory failure with hypoxia; Z68.1 Body mass index [BMI] 19.9 or less, adult; R64 Cachexia; E44.0 Moderate protein-calorie malnutrition; I50.42 Chronic combined systolic (congestive) and diastolic (congestive) heart failure; Z99.81 Dependence on supplemental oxygen; I27.20 Pulmonary hypertension, unspecified; J43.9 Emphysema, unspecified; D69.6 Thrombocytopenia, unspecified; J84.10 Pulmonary fibrosis, unspecified; I73.00 Raynaud's syndrome without gangrene; F17.200 Nicotine dependence, unspecified, uncomplicated; R62.7 Adult failure to thrive; Z51.5 Encounter for palliative care; D53.9 Nutritional anemia, unspecified; R01.1 Cardiac murmur, unspecified; R94.31 Abnormal electrocardiogram [ECG] [EKG]; Z66 Do not resuscitate
CPT/HCPCS: 36415; 36600; 71045; 80048; 80053; 80061; 80069; 81001; 82607; 82746; 82803; 83735; 83880; 84484; 85025; 85610; 93005; 93306; 94640; 97161; 99222; A9270; J1650; J7626; 83721; 87086

== ENCOUNTER 2018-12-29 16:17 | Outpatient (CLI) | payer MEDICARE | END 2018-12-29 16:18 | disposition critical access hospital (66) | LOC: EMS 16:17 | PROVIDERS: ATTEND Surgery | DX: R06.00 Dyspnea, unspecified (principal) | CPT/HCPCS: A0425; A0426 ==

== ENCOUNTER 2019-01-12 16:10 | Outpatient (CLI) | payer MEDICARE ==
[2019-01-12 19:00] LABS: BASOPHILS # (AUTO) 0.1 10^3/uL (0.0-0.1); BASOPHILS % (AUTO) 1.1 %; EOSINOPHILS # (AUTO) 0.5 10^3/uL (0.0-0.7); EOSINOPHILS % (AUTO) 7.5 %; HGB - HEMOGLOBIN 15.7 g/dL (12.0-16.0); LYMPHOCYTES # (AUTO) 1.7 10^3/uL (1.5-3.5); LYMPHOCYTES % (AUTO) 27.5 %; MEAN CORPUSCULAR HEMOGLOBIN 33.2 pg (27.0-31.0); MEAN CORPUSCULAR HGB CONC 32.1 g/dL (32.0-36.0); MEAN CORPUSCULAR VOLUME 103.3 fL (81.0-99.0); MEAN PLATELET VOLUME 8.5 fL (7.9-10.8); MONOCYTES # (AUTO) 0.7 10^3/uL (0.0-1.0); MONOCYTES % (AUTO) 11.2 %; NEUTROPHILS # (AUTO) 3.3 10^3/uL (1.5-6.6); NEUTROPHILS % (AUTO) 52.7 %; PLT - PLATELET COUNT 180 10^3/uL (130-450); RED BLOOD COUNT 4.72 10^6/uL (4.20-5.40); RED CELL DISTRIBUTION WIDTH 15.2 % (12.0-15.0); WHITE BLOOD COUNT 6.2 x10^3/uL (4.8-10.8)
[2019-01-12 19:35] LABS: ALBUMIN 4.4 g/dL (3.2-5.5); ALBUMIN/GLOBULIN RATIO 1.3 (1.0-2.2); BILIRUBIN,TOTAL 0.6 mg/dL (0.2-1.0); CALCIUM 9.4 mg/dL (8.5-10.3); CREATININE 1.1 mg/dL (0.4-1.0); TOTAL PROTEIN 7.9 g/dL (6.7-8.2)
== END 2019-01-12 23:59 ==
LOC: LAB.WCP 16:10
PROVIDERS: ATTEND Nurse Practitioner
DX: I50.9 Heart failure, unspecified (principal); R60.9 Edema, unspecified
CPT/HCPCS: 36415; 80053; 85025

== ENCOUNTER 2019-01-22 14:23 | Outpatient (CLI) | payer MEDICARE ==
--- NOTE | 2019-01-22 16:18 | CT Report ---
Reason: PULMONARY NODULE,RIGHT LOWER LOBE, PULMONARY FIBRO Procedure Date: 01/22/2019 Accession Number: [id number] / [id number] Procedure: CT - CHEST WO CPT Code: FULL RESULT: EXAM: CT CHEST EXAM DATE: 01/22/2019 02:59 PM. CLINICAL HISTORY: Solitary pulmonary nodule. COMPARISONS: CHEST W/ 07/27/2016 9:14 AM. TECHNIQUE: Routine helical CT imaging was performed through the chest. IV contrast: None. Reconstructions: Coronal and sagittal. In accordance with CT protocol optimization, one or more of the following dose reduction techniques were utilized for this exam: automated exposure control, adjustment of mA and/or KV based on patient size, or use of iterative reconstructive technique. FINDINGS: Lungs/Pleura: As before, extensive bullous emphysematous changes of the lungs are seen. There is some mild superimposed subpleural fibrosis/scarring seen in the lung bases and in the right lung apex. There is no consolidation, effusion, or pneumothorax. A previous 9 mm subpleural nodule along the anterior right lower lobe demonstrates central coarse and benign calcification (image 34/4). The nodule is unchanged in size. No new pulmonary nodule or mass is demonstrated. Mediastinum: Heart size is normal with no pericardial effusion or adenopathy. There is prominence of the central pulmonary artery vasculature measuring up to 4.1 cm, unchanged. Prominence of the ascending aorta up to 4.2 cm, unchanged. Bones: Unremarkable. Visualized Abdomen: Unremarkable. Other: None. IMPRESSION: 1. No acute cardiopulmonary abnormality demonstrated. 2. Extensive bullous emphysema and mild bibasilar/right apical scarring unchanged. 3. Stable size 9 mm right lower lobe pulmonary nodule with calcification consistent with benign etiology. 4. Stable mild aneurysmal dilatation of the ascending aorta up to 4.2 cm and prominence of the central pulmonary artery vasculature which may represent pulmonary hypertension changes. [facility]
== END 2019-01-22 14:24 | disposition home or self-care (01) ==
LOC: DI 14:23
PROVIDERS: ATTEND Nurse Practitioner
DX: R91.1 Solitary pulmonary nodule (principal); J84.10 Pulmonary fibrosis, unspecified; F17.200 Nicotine dependence, unspecified, uncomplicated; I51.7 Cardiomegaly; R60.9 Edema, unspecified; J43.9 Emphysema, unspecified; I71.4 Abdominal aortic aneurysm, without rupture
CPT/HCPCS: 71250

== ENCOUNTER 2019-01-27 08:00 | Outpatient (CLI) | payer MEDICARE | END 2019-01-27 23:59 | LOC: LAB.WCP 08:00 | PROVIDERS: ATTEND Family Medicine | DX: Z51.81 Encounter for therapeutic drug level monitoring (principal); I50.9 Heart failure, unspecified; E05.90 Thyrotoxicosis, unspecified without thyrotoxic crisis or storm; Z79.899 Other long term (current) drug therapy | CPT/HCPCS: 36415; 80053; 82306; 83880; 84443 ==

== ENCOUNTER 2019-01-28 08:00 | Outpatient (CLI) | payer MEDICARE ==
[2019-01-28 13:33] LABS: ALBUMIN 4.2 g/dL (3.2-5.5); ALBUMIN/GLOBULIN RATIO 1.2 (1.0-2.2); BILIRUBIN,TOTAL 0.7 mg/dL (0.2-1.0); CALCIUM 9.5 mg/dL (8.5-10.3); TOTAL PROTEIN 7.6 g/dL (6.7-8.2)
== END 2019-01-28 23:59 ==
LOC: LAB.WCP 08:00
PROVIDERS: ATTEND Family Medicine
DX: Z51.81 Encounter for therapeutic drug level monitoring (principal); Z79.899 Other long term (current) drug therapy; I50.9 Heart failure, unspecified; E05.90 Thyrotoxicosis, unspecified without thyrotoxic crisis or storm
CPT/HCPCS: 36415; 80053; 82306; 83880; 84443

== ENCOUNTER 2021-02-24 15:03 | Outpatient (CLI) | payer MEDICARE | END 2021-02-24 15:04 | disposition E | LOC: EMS 15:03 | CPT/HCPCS: A0425; A0429 ==